=== PATIENT | male | born 1960 | race Caucasian/White ===

== ENCOUNTER → 2021-08-23 10:52 | Outpatient (BNVA) | payer OTHER, SELFPAY | PROVIDERS: PCP Internal Medicine; Visit Provider Nurse Practitioner Family | DX: G43.009 Migraine without aura, not intractable, without status migrainosus (principal); F07.81 Postconcussional syndrome | CPT/HCPCS: 99212 ==

== ENCOUNTER → 2021-11-01 13:22 | Outpatient (BNVA) | payer OTHER, SELFPAY | PROVIDERS: PCP Internal Medicine; Visit Provider Nurse Practitioner Family | DX: G43.009 Migraine without aura, not intractable, without status migrainosus (principal); F07.81 Postconcussional syndrome; R42 Dizziness and giddiness | CPT/HCPCS: 99212 ==

== ENCOUNTER → 2022-03-02 10:01 | Outpatient (BNVA) | payer OTHER, SELFPAY | PROVIDERS: PCP Internal Medicine; Visit Provider Nurse Practitioner Family | DX: F07.81 Postconcussional syndrome (principal); G43.009 Migraine without aura, not intractable, without status migrainosus | CPT/HCPCS: 99212 ==

== ENCOUNTER → 2022-05-25 08:37 | Outpatient (BNVA) | payer OTHER, SELFPAY | PROVIDERS: PCP Internal Medicine; Visit Provider Nurse Practitioner Family | DX: F07.81 Postconcussional syndrome (principal); G43.009 Migraine without aura, not intractable, without status migrainosus | CPT/HCPCS: 99212 ==

== ENCOUNTER → 2022-08-24 08:04 | Outpatient (BNVA) | payer OTHER, SELFPAY | PROVIDERS: PCP Internal Medicine; Visit Provider Nurse Practitioner Family | DX: F07.81 Postconcussional syndrome (principal) | CPT/HCPCS: 99212 ==

== ENCOUNTER → 2022-11-30 07:59 | Outpatient (BNVA) | payer OTHER, SELFPAY | PROVIDERS: PCP Internal Medicine; Visit Provider Nurse Practitioner Family | DX: F07.81 Postconcussional syndrome (principal); G43.009 Migraine without aura, not intractable, without status migrainosus; R42 Dizziness and giddiness; Z79.899 Other long term (current) drug therapy | CPT/HCPCS: 99212 ==

== ENCOUNTER 2023-03-04 12:46 | Outpatient (AMB) | payer OTHER, SELFPAY ==
--- NOTE | 2023-03-04 13:05 | A.OFFVIS_ITS ---
Intake Vital Signs 03/04/23 13:06 Height 5 ft 9 in Weight 212 lb BMI 31.3 BP 134/74 Blood Pressure Location Lt brachial Position Sitting Respiration 14 Pulse 55 Pulse Source Pulse Oximeter Pulse Oximetry (%) 97 Oxygen Delivery Method Room Air Intake Visit Reasons: Low Back Pain Allergies cat dander Allergy (Mild, Verified 03/04/23 13:07) Wheezing dog dander Allergy (Mild, Verified 03/04/23 13:07) Wheezing hayfever Allergy (Mild, Uncoded 03/04/23 13:07) Wheezing Medication List - Last Reconciled 03/04/23 by Kenyetta Riley LPN adhesive bandage XL. Apply to injection site. albuterol sulfate mg inhalation Q6H albuterol sulfate 90 mcg/actuation 2 puffs inhalation Q4-6H PRN aspirin 81 mg PO DAILY benzonatate 200 mg PO TID PRN budesonide-formoterol 160-4.5 mcg/actuation (Symbicort) 2 puffs inhalation clonazepam 0.5 mg PO BID cyclobenzaprine 10 mg PO TID PRN fluticasone propionate 50 mcg/actuation 1 spray intranasal DAILY galcanezumab-gnlm (Emgality Pen) 120 mg subcut monthly; 30 days ibuprofen 800 mg PO TID PRN isopropyl alcohol 70% 1 ea topically monthly before Emgality injection; 30 days isopropyl alcohol 70% 3 ea topical .monthly 30 days levothyroxine 125 mcg PO QAM lisinopril-hydrochlorothiazide 20-12.5 mg 1 tab PO DAILY montelukast 10 mg PO DAILY pantoprazole 40 mg PO DAILY propranolol ER 80 mg PO DAILY 30 days simvastatin 40 mg PO QPM sumatriptan succinate 1/2 - 1 tab po prn at onset of migraine, may repeat in 2 hours (max 2 tabs per day, 4 tabs per week) (may take with Aleve) 30 days tadalafil 5 mg PO DAILY HPI Low Back Pain HPI Details 62-year-old male who presents today to t he office for a new patient evaluation of low back pain. The patient reports low back pain secondary to DJD of the spine spine. He has long standing neck and back pain that has going on for eight years. The patient was referred to us for consideration of lumbar facet blocks. It is rated at 5- 8/10 in intensity. He had tried massages at home in the past. He takes ibuprofen, Tylenol, and Percocet. He is currently on Propranolol and is currently receiving Emgality Pen shots for migraine preventions with Dr. Jerez. He is also on cyclobenzaprine and Klonopin. The patient reports pain in his neck that radiates to his right shoulder. His pain is worse at night. He has not been in formal physical therapy recently but has been on and off participating in PT with physician directed home exercises. He has weakness and fatigue in his arm. He has intermittent numbness in his hands. He has muscle tightness and pain with sideways movements. He has noticed an occasional clicking sound when turning his head. His history is notable for rotator cuff tendonitis, and he has previously received injections with moderate benefit. He is currently working a half shift from 7:00 AM to 12:00 PM and then picking up his grandson from preschool in the evening. The patient had bilateral hydrocelectomy with Dr. Fierro in 03/14/22. [facility] Medical History (Updated 03/05/23 @ 11:28 by Raghav Erwin MD) Irritable bowel syndrome with diarrhea Obesity Neck pain Hypothyroidism Chronic back pain Bronchial asthma Hyperlipidemia HTN (hypertension) Surgical History History of hydrocelectomy Hx of hernia repair Family History Father Heart disease Mother Heart disease Social History Alcohol intake: current Alcohol intake frequency: holidays/special occasions only Patient Tobacco Use Status: Never used Tobacco Review of Systems Const All systems reviewed & are unremarkable except as noted in HPI and below Physical Exam Vital Signs: Last Vital Signs Pulse 55 03/04/23 13:06 Resp 14 03/04/23 13:06 BP 134/74 03/04/23 13:06 Pulse Ox 97 03/04/23 13:06 Oxygen Delivery Method Room Air 03/04/23 13:06 BMI result Body Mass Index 31.3 General: Appears afebrile. Alert and oriented. Mood and affect appropriate. Follows and participates in conversation appropriately. Respiratory effort is unlabored. Able to transition from sit to stand unassisted. Ambulates with bilaterally normal heel strike and toe off. Cervical extension reproduces pain on the both sides more on the right side than left side. Cervical flexion also reproduces pain at the back of the neck. Results Reviewed Results Reviewed: No imaging is available for review. Assessment & Plan Assessment & Plan (1) Cervical spondylosis: Code(s): M47.812 - Spondylosis without myelopathy or radiculopathy, cervical region (2) Lumbar spondylosis: Code(s): M47.816 - Spondylosis without myelopathy or radiculopathy, lumbar region Plan Likely has a combination of cervical DJD / DDD. At this time his neck pain radiating into the shoulder seems to be most bothersome on the right side. Will schedule him for right diagnostic C4-C5-C6 medial branch blocks followed by potential PNS or RFA. Discussed the risks and benefits of the procedure with the patient in detail. All questions were answered. The patient is on board with the plan. In case of radicular symptoms in the future, can consider epidural steroid injection in the neck and facet blocks for the lower back for low back pain. Justification for interventional therapy: ? Patient with average pain > 6/10 ? Patient has exhausted conservative therapy ? Patient has been engaged in physician directed home exercise program for several months Scribed for Dr. Erwin by Jerzy Santiago, medical i d sales, on 03/04/2023. I, Dr. Erwin, have personally reviewed and agree with the information entered by the scribe. Coding Level of Care Code New Pt Level 4 (64399) Diagnoses Cervical spondylosis M47.812 Lumbar spondylosis M47.816
[2023-03-04 13:06] VITALS: BP 134/74; PULSE 55; RESP 14; O2SAT 97; BMI 31.3
== END 2023-03-04 13:42 | disposition home or self-care (01) ==
PROVIDERS: PCP Internal Medicine; Visit Provider Internal Medicine
DX: M47.812 Spondylosis without myelopathy or radiculopathy, cervical region (principal); M47.816 Spondylosis without myelopathy or radiculopathy, lumbar region
CPT/HCPCS: 99204

== ENCOUNTER → 2023-03-04 12:46 | Outpatient (BNVA) | payer OTHER, SELFPAY | PROVIDERS: PCP Internal Medicine; Visit Provider Internal Medicine ==

== ENCOUNTER 2023-03-13 12:26 | Outpatient (AMB) | payer OTHER, SELFPAY ==
--- NOTE | 2023-03-13 13:11 | MHC.OFFVIS ---
Intake Vital Signs 03/13/23 13:13 BP 122/78 Blood Pressure Location Rt brachial Position Sitting Pulse 51 Pulse Source Pulse Oximeter Pulse Oximetry (%) 97 Oxygen Delivery Method Room Air Intake Visit Reasons: WC 3m follow up-Confirmed Intake Note: Patient presents for 3 month follow up. patient states It's been a rough summer,more frequent headaches. Allergies cat dander Allergy (Mild, Verified 03/13/23 13:12) Wheezing dog dander Allergy (Mild, Verified 03/13/23 13:12) Wheezing hayfever Allergy (Mild, Uncoded 03/13/23 13:12) Wheezing Medication List - Last Reconciled 03/13/23 by RAYMUNDO Ordonez adhesive bandage XL. Apply to injection site. albuterol sulfate mg inhalation Q6H albuterol sulfate 90 mcg/actuation 2 puffs inhalation Q4-6H PRN aspirin 81 mg PO DAILY benzonatate 200 mg PO TID PRN budesonide-formoterol 160-4.5 mcg/actuation (Symbicort) 2 puffs inhalation clonazepam 0.5 mg PO BID cyclobenzaprine 10 mg PO TID PRN fluticasone propionate 50 mcg/actuation 1 spray intranasal DAILY galcanezumab-gnlm (Emgality Pen) 120 mg subcut monthly; 30 days ibuprofen 800 mg PO TID PRN isopropyl alcohol 70% 1 ea topically monthly before Emgality injection; 30 days isopropyl alcohol 70% 3 ea topical .monthly 30 days levothyroxine 125 mcg PO QAM lisinopril-hydrochlorothiazide 20-12.5 mg 1 tab PO DAILY montelukast 10 mg PO DAILY pantoprazole 40 mg PO DAILY propranolol ER 80 mg PO DAILY 30 days simvastatin 40 mg PO QPM sumatriptan succinate 1/2 - 1 tab po prn at onset of migraine, may repeat in 2 hours (max 2 tabs per day, 4 tabs per week) (may take with Aleve) 30 days tadalafil 5 mg PO DAILY HPI HPI Comments History of Present Illness Details 62-yr-old male presents for f/u visit. Pt denies any significant interval medical changes. He reports an increase in headaches- now 3-4 headaches per week, 1 of which is a more mod-severe migraine attack. Pt did decrease his Propranolol was decreased from 120mg to 80mg- which has helped the bradycardia- now HR is > 50 more consistently. Pt states PCP is considering reducing his BP meds overall. There was more weather changes over the summer. He does try to rest, and do his relaxation techniques. He does try to minimize his triggers- such as takes breaks during his own yard work or while driving. He is compliant w/ Emgality. Using the Sumatriptan prn which usually helps, but can feel more tired from fighting a headache PFSH Medical History (Updated 03/05/23 @ 11:28 by Raghav Erwin MD) Irritable bowel syndrome with diarrhea Obesity Neck pain Hypothyroidism Chronic back pain Bronchial asthma Hyperlipidemia HTN (hypertension) Surgical History History of hydrocelectomy Hx of hernia repair Family History Father Heart disease Mother Heart disease Social History Alcohol intake: current Alcohol intake frequency: holidays/special occasions only Patient Tobacco Use Status: Never used Tobacco Review of Systems Const All systems reviewed & are unremarkable except as noted in HPI and below Physical Exam Vital Signs: Last Vital Signs Pulse 51 03/13/23 13:13 BP 122/78 03/13/23 13:13 Pulse Ox 97 03/13/23 13:13 Oxygen Delivery Method Room Air 03/13/23 13:13 Const General: cooperative and no acute distress Orientation/consciousness: patient oriented x3 HEENT Head: Yes normocephalic Resp Effort & Inspection: normal respiratory effort and able to speak in complete sentences Neuro General: patient oriented x3, gait normal and CN's II-XI intact bilaterally Cognition (Neuro): normal cognition Motor exam (neuro): 5/5 motor strength present throughout Psych Appearance: grossly normal Mental Status: mental status grossly normal Speech and movement: Normal speech and movement present Affect: normal affect Attitude: cooperative Thought process: Normal thought process present Thought content: Normal thought content present Insight: Good insight present (Psych) Judgement: Good judgement present (Psych) Assessment & Plan Assessment & Plan (1) Postconcussive syndrome: Comment: headache/migraines s/p head injury Jan 2016 and August 2016. Code(s): F07.81 - Postconcussional syndrome (2) Migraine without aura: Code(s): G43.009 - Migraine without aura, not intractable, without status migrainosus Plan Continue Emgality 120mg sc q month. Retry Propranolol ER at 120mg qhs to 80mg qhs- in hopes this reduces headache burden. Pt to check BP & HR at home qd-bid, and notify me if HR < 46. Continue prn Sumatriptan and NSAID. Continue to rest 15-20 minutes after taking triptan to allow for best effect. Continue to avoid triggers. Future considerations: If bradycardia worsens- reduce Propranolol back to 60mg ER qd, start B2 and Mag. Nerivio- info given. Coding Level of Care Code Est Pt Level 4 (72364) Diagnoses Postconcussive syndrome F07.81 Migraine without aura G43.009
[2023-03-13 13:13] VITALS: BP 122/78; PULSE 51; O2SAT 97
== END 2023-03-13 14:08 | disposition home or self-care (01) ==
PROVIDERS: PCP Internal Medicine; Visit Provider Nurse Practitioner Family
DX: R00.1 Bradycardia, unspecified (principal); F07.81 Postconcussional syndrome; G44.309 Post-traumatic headache, unspecified, not intractable
CPT/HCPCS: 99213

== ENCOUNTER → 2023-03-13 12:26 | Outpatient (BNVA) | payer OTHER, SELFPAY | PROVIDERS: PCP Internal Medicine; Visit Provider Nurse Practitioner Family | DX: F07.81 Postconcussional syndrome (principal); G43.009 Migraine without aura, not intractable, without status migrainosus; Z79.899 Other long term (current) drug therapy | CPT/HCPCS: 99212 ==

== ENCOUNTER 2023-05-15 06:06 | Outpatient (REF) | payer OTHER, SELFPAY ==
--- NOTE | ~2023-05-15 | FL_ITS ---
EXAMINATION: XR FLUOROSCOPY WITH IMAGES CLINICAL INFORMATION: Spondylosis without myelopathy or radiculopathy, cervical region. COMPARISON: None available. TECHNIQUE: Fluoroscopy Supervised By: Dr. Raghav Erwin. Fluoroscopy Time: 0.3 minutes. Cumulative Dose: 6.86 mGy. DAP: 0.731 Gycm2. Images: 1. FINDINGS: Image demonstrates needle placement and contrast injection adjacent to the right lateral cervical spine FL/FL guidance in treatment room IMPRESSION: Fluoroscopy guidance for pain management procedure.
== END 2023-05-15 06:07 | disposition home or self-care (01) ==
LOC: CF 06:06
PROVIDERS: Visit Provider Internal Medicine
DX: M47.812 Spondylosis without myelopathy or radiculopathy, cervical region (principal)
CPT/HCPCS: 64490; 64491; J2795; Q9967

== ENCOUNTER 2023-05-15 08:12 | Outpatient (AMB) | payer OTHER, SELFPAY ==
[2023-05-15 08:20] VITALS: BP 140/72; PULSE 49; RESP 12; O2SAT 97
--- NOTE | 2023-05-15 08:20 | MHC.OFFVIS ---
Intake Vital Signs 05/15/23 08:20 05/15/23 09:02 BP 140/72 H 120/68 Blood Pressure Location Lt brachial Lt brachial Position Sitting Sitting Respiration 12 12 Pulse 49 L 48 L Pulse Source Pulse Oximeter Pulse Oximeter Pulse Oximetry (%) 97 96 Oxygen Delivery Method Room Air Room Air Intake Visit Reasons: right Dx C4-C5-C6 MBB Allergies cat dander Allergy (Mild, Verified 05/15/23 08:21) Wheezing dog dander Allergy (Mild, Verified 05/15/23 08:21) Wheezing hayfever Allergy (Mild, Uncoded 05/15/23 08:21) Wheezing HPI right Dx C4-C5-C6 MBB HPI Details Patient presents for scheduled procedure. Denies any recent cough, cold, infection, fever or other significant changes in medical history since last office visit. [facility] Medical History (Updated 04/17/23 @ 14:52 by Angela Jones) Irritable bowel syndrome with diarrhea Obesity Neck pain Hypothyroidism Chronic back pain Bronchial asthma Hyperlipidemia HTN (hypertension) Surgical History (Updated 04/17/23 @ 14:52 by Angela Jones) History of hydrocelectomy Hx of hernia repair Family History (System 04/17/23 @ 14:52 by Angela Jones) Father Heart disease Mother Heart disease Social History (System 04/17/23 @ 14:52 by Angela Jones) Alcohol intake: current Alcohol intake frequency: holidays/special occasions only Patient Tobacco Use Status: Never used Tobacco Physical Exam Vital Signs: Last Vital Signs Pulse 48 L 05/15/23 09:02 Resp 12 05/15/23 09:02 BP 120/68 05/15/23 09:02 Pulse Ox 96 05/15/23 09:02 Oxygen Delivery Method Room Air 05/15/23 09:02 Office Procedures Cervical/Thoracic Facet Inj Details: Diagnostic Cervical Medial Branch Block, right C4, C5, C6 medial branches After obtaining written consent, pre-procedure blood pressure and pulse were recorded and are in the nursing record for review. The patient was placed in a lateral position. The respective cervical area was prepped with chloraprep and draped in sterile fashion. The skin over the target medial branch nerves was anesthetized with 0.5% lidocaine. A 25 gauge 1.5 inch needle was inserted into the target medial branch nerve under fluoroscopic guidance. No paresthesias were elicited with needle placement and aspiration was negative for blood and CSF. Next, 0.2cc of omnipaque 180 was injected to verify positioning. Next 0.5 ml 0.5% ropivicaine was injected (0.5 cc total per level). The identical procedure was performed at the remaining levels. The skin was cleansed and a sterile bandage was applied. Following the procedure the patient's vital signs were stable. The patient tolerated the procedure well and no complications were encountered. Following the procedure the patient's vital signs were stable. The patient was discharged home in good condition with post-procedural instructions. Time Out: Immediately prior to the procedure, the following was verbally confirmed that there is a signed consent form and that the correct patient, planned procedure, site and side are consistent with documentation and that necessary equipment and/or blood products are available prior to the start of the case. Complications: none EBL: <5 cc 74196 - second level, with Fluoroscopy Procedure code (CPT) selection complete Assessment & Plan Assessment & Plan (1) Cervical spondylosis: Code(s): M47.812 - Spondylosis without myelopathy or radiculopathy, cervical region Plan Patient is status post right diagnostic C4, C5, C6 MBBs. Patient tolerated procedure well and was discharged home in stable condition with discharge instructions. All questions were answered. We will follow-up via telephone or in clinic to assess response to therapy. A follow-up appointment was made during today's visit. Orders: Orders FL guidance in treatment room Today M47.812 - Spondylosis without myelopathy or radiculopathy, cervical region Coding Level of Care Code Procedure Only Diagnoses Cervical spondylosis M47.812 CPT Codes Facet Injection Cervical/Thoracic - CPT: 45894 - second level, with Fluoroscopy ([id number])
[2023-05-15 09:02] VITALS: BP 120/68; PULSE 48; RESP 12; O2SAT 96
== END 2023-05-15 08:56 | disposition home or self-care (01) ==
LOC: HO.PMCPRC 08:12
PROVIDERS: PCP Internal Medicine; Visit Provider Internal Medicine
DX: M47.812 Spondylosis without myelopathy or radiculopathy, cervical region (principal)
CPT/HCPCS: 64490; 64491

== ENCOUNTER 2023-05-20 12:38 | Outpatient (AMB) | payer OTHER, SELFPAY ==
--- NOTE | 2023-05-20 12:58 | MHC.OFFVIS ---
Intake Vital Signs 05/20/23 12:59 Height 5 ft 9 in Weight 220 lb BMI 32.5 Blood Pressure Location Lt brachial Position Sitting Respiration 12 Pulse 50 Pulse Source Pulse Oximeter Pulse Oximetry (%) 97 Oxygen Delivery Method Room Air Intake Visit Reasons: s/p Right Dx C4-C5-C6 MBB/confirmed Allergies cat dander Allergy (Mild, Verified 05/20/23 13:00) Wheezing dog dander Allergy (Mild, Verified 05/20/23 13:00) Wheezing hayfever Allergy (Mild, Uncoded 05/20/23 13:00) Wheezing Medication List - Last Reconciled 05/20/23 by Kenyetta Riley LPN adhesive bandage XL. Apply to injection site. albuterol sulfate mg inhalation Q6H albuterol sulfate 90 mcg/actuation 2 puffs inhalation Q4-6H PRN aspirin 81 mg PO DAILY benzonatate 200 mg PO TID PRN budesonide-formoterol 160-4.5 mcg/actuation (Symbicort) 2 puffs inhalation clonazepam 0.5 mg PO BID cyclobenzaprine 10 mg PO TID PRN fluticasone propionate 50 mcg/actuation 1 spray intranasal DAILY galcanezumab-gnlm (Emgality Pen) 120 mg subcut monthly; 30 days ibuprofen 800 mg PO TID PRN isopropyl alcohol 70% 1 ea topically monthly before Emgality injection; 30 days isopropyl alcohol 70% 3 ea topical .monthly 30 days levothyroxine 125 mcg PO QAM lisinopril-hydrochlorothiazide 20-12.5 mg 1 tab PO DAILY montelukast 10 mg PO DAILY pantoprazole 40 mg PO DAILY propranolol ER 80 mg PO DAILY 30 days simvastatin 40 mg PO QPM sumatriptan succinate 1/2 - 1 tab po prn at onset of migraine, may repeat in 2 hours (max 2 tabs per day, 4 tabs per week) (may take with Aleve) 30 days tadalafil 5 mg PO DAILY HPI s/p Right Dx C4-C5-C6 MBB/confirmed HPI Details 63-year-old male who presents today to the office for a status post right diagnostic C4-C5-C6 MBB. The patient reports 90% relief following the procedure for about four days. He has good improvement in his neck ROM. He is currently employed and work supervisor delivery department. He states that his eating and sleeping was improved. Past procedure: 05/15/23: Diagnostic Cervical Medial Branch Block, right C4, C5, C6 medial branches: 90% relief for about four days. [facility] Medical History (Updated 04/17/23 @ 14:52 by Angela Jones) Irritable bowel syndrome with diarrhea Obesity Neck pain Hypothyroidism Chronic back pain Bronchial asthma Hyperlipidemia HTN (hypertension) Surgical History (Updated 04/17/23 @ 14:52 by Angela Jones) History of hydrocelectomy Hx of hernia repair Family History (System 04/17/23 @ 14:52 by Angela Jones) Father Heart disease Mother Heart disease Social History (System 04/17/23 @ 14:52 by Angela Jones) Alcohol intake: current Alcohol intake frequency: holidays/special occasions only Patient Tobacco Use Status: Never used Tobacco Review of Systems Const All systems reviewed & are unremarkable except as noted in HPI and below Physical Exam Vital Signs: Last Vital Signs Pulse 50 05/20/23 12:59 Resp 12 05/20/23 12:59 Pulse Ox 97 05/20/23 12:59 Oxygen Delivery Method Room Air 05/20/23 12:59 BMI result Body Mass Index 32.5 General: Appears afebrile. Alert and oriented. Mood and affect appropriate. Follows and participates in conversation appropriately. Respiratory effort is unlabored. Able to transition from sit to stand unassisted. Ambulates with bilaterally normal heel strike and toe off. Results Reviewed Results Reviewed: No imaging is available for review. Assessment & Plan Assessment & Plan (1) Cervical spondylosis: Code(s): M47.812 - Spondylosis without myelopathy or radiculopathy, cervical region Plan Will schedule him for right C4-5 and C5-6 therapeutic facet blocks with corticosteroid followed by potential PNS or RFA if needed. Discussed the risks and benefits of facet injection, peripheral nerve stimulation of the medial branch and radiofrequency ablation of the medial branch with the patient in detail. All questions were answered. The patient is on board with the plan. Justification for interventional therapy: ? Patient with average pain > 6/10 ? Patient has exhausted conservative therapy ? Patient has been engaged in physician directed home exercise program for several months . Diagnostic injection provided 90% relief during the diagnostic phase Scribed for Dr. Erwin by Jerzy Santiago, medical office manager, on 05/20/2023. I, Dr. Erwin, have personally reviewed and agree with the information entered by the scribe. Coding Level of Care Code Est Pt Level 3 (40578) Diagnoses Cervical spondylosis M47.812
[2023-05-20 12:59] VITALS: PULSE 50; RESP 12; O2SAT 97; BMI 32.5
== END 2023-05-20 13:34 | disposition home or self-care (01) ==
PROVIDERS: PCP Internal Medicine; Visit Provider Internal Medicine
DX: M47.812 Spondylosis without myelopathy or radiculopathy, cervical region (principal)
CPT/HCPCS: 99213

== ENCOUNTER → 2023-05-20 12:38 | Outpatient (BNVA) | payer OTHER, SELFPAY | PROVIDERS: PCP Internal Medicine; Visit Provider Internal Medicine ==

== ENCOUNTER 2023-06-27 06:10 | Outpatient (REF) | payer OTHER, SELFPAY ==
--- NOTE | ~2023-06-27 | FL_ITS ---
EXAMINATION: XR FLUOROSCOPY WITH IMAGES CLINICAL INFORMATION: Cervical spondylosis without myelopathy. COMPARISON: Fluoroscopy dated 05/15/2023. TECHNIQUE: Fluoroscopy Supervised By: Monisha Canela. Fluoroscopy Time: 16.1. Cumulative Dose: 6.96 mGy. Images: 3. FINDINGS: The submitted images show show needle placement and contrast injection adjacent to the upper right lateral cervical spine. FL/FL guidance in treatment room IMPRESSION: Probable fluoroscopic guidance is provided during right cervical pain management procedure. Please see the patient's Operative Report for full procedural details.
== END 2023-06-27 06:11 | disposition home or self-care (01) ==
LOC: CF 06:10
PROVIDERS: Visit Provider Internal Medicine
DX: M47.812 Spondylosis without myelopathy or radiculopathy, cervical region (principal)
CPT/HCPCS: 64490; 64491; J1100; J2795; Q9967

== ENCOUNTER 2023-06-27 13:07 | Outpatient (AMB) | payer OTHER, SELFPAY ==
[2023-06-27 13:10] VITALS: BP 130/68; PULSE 62; RESP 12; O2SAT 97
--- NOTE | 2023-06-27 13:10 | A.OFFVIS_ITS ---
Intake Vital Signs 06/27/23 13:10 06/27/23 14:04 BP 130/68 120/68 Blood Pressure Location Lt brachial Rt brachial Position Sitting Sitting Respiration 12 12 Pulse 62 57 Pulse Source Pulse Oximeter Pulse Oximeter Pulse Oximetry (%) 97 96 Oxygen Delivery Method Room Air Room Air Intake Visit Reasons: Right C4-C5, C5-C6 theraputic facet inj Allergies cat dander Allergy (Mild, Verified 06/27/23 13:10) Wheezing dog dander Allergy (Mild, Verified 06/27/23 13:10) Wheezing hayfever Allergy (Mild, Uncoded 06/27/23 13:10) Wheezing HPI Right C4-C5, C5-C6 theraputic facet inj HPI Details Patient presents for scheduled procedure. Denies any recent cough, cold , infection, fever or other significant changes in medical history since last office visit. [facility] Medical History (Updated 04/17/23 @ 14:52 by Angela Jones) Irritable bowel syndrome with diarrhea Obesity Neck pain Hypothyroidism Chronic back pain Bronchial asthma Hyperlipidemia HTN (hypertension) Surgical History (Updated 04/17/23 @ 14:52 by Angela Jones) History of hydrocelectomy Hx of hernia repair Family History (System 04/17/23 @ 14:52 by Angela Jones) Father Heart disease Mother Heart disease Social History (System 04/17/23 @ 14:52 by Angela Jones) Alcohol intake: current Alcohol intake frequency: holidays/special occasions only Patient Tobacco Use Status: Never used Tobacco Physical Exam Vital Signs: Last Vital Signs Pulse 57 06/27/23 14:04 Resp 12 06/27/23 14:04 BP 120/68 06/27/23 14:04 Pulse Ox 96 06/27/23 14:04 Oxygen Delivery Method Room Air 06/27/23 14:04 Office Procedures Cervical/Thoracic Facet Inj Details: Cervical Intra-articular Facet Injections, Right, C-4/5, C-5/6 After obtaining written consent, pre-procedure blood pressure and pulse were recorded and are in the nursing record for review. The patient was placed in a lateral position. The respective cervical area was prepped with chloraprep and draped in sterile fashion. The target facet joints were visualized. A 25 gauge 1.5 inch needle was advanced towards the target facet joint under fluoroscopic guidance until bony contact. The needle was then maneuvered and rotated until it slid into the joint slightly. No paresthesias were elicited with needle placement and aspiration was negative for blood and CSF. Facet arthrograms were obtained using Omnipaque 180. Next, 5 mg of Dexamethasone was injected (0.5 cc total per level). The needle was then withdrawn to just outside the capsule and 0.5 ml ropivacaine 0.5% was injected. The identical procedure was performed at the remaining levels. The skin was cleansed and a sterile bandage was applied. Following the procedure the patient's vital signs were stable. The patient tolerated the procedure well and no complications were encountered. Following the procedure the patient's vital signs were stable. The patient was discharged home in good condition with post-procedural instructions. Time Out: Immediately prior to the procedure, the following was verbally confirmed that there is a signed consent form and that the correct patient, planned procedure, site and side are consistent with documentation and that necessary equipment and/or blood products are available prior to the start of the case. Complications: none EBL: <5 cc 16688 - with Fluoroscopy 91857 - second level, with Fluoroscopy Procedure code (CPT) selection complete Assessment & Plan Assessment & Plan (1) Cervical spondylosis: Code(s): M47.812 - Spondylosis without myelopathy or radiculopathy, cervical region Plan Patient is status post right C4/5 and C5/6 intra-articular facet decadron injections. Patient tolerated procedure well and was discharged home in stable condition with discharge instructions. All questions were answered. We will follow-up via telephone or in clinic to assess response to therapy. A follow-up appointment was made during today's visit. Orders: Orders FL guidance in treatment room Today M47.812 - Spondylosis without myelopathy or radiculopathy, cervical region Coding Level of Care Code Procedure Only Diagnoses Cervical spondylosis M47.812 CPT Codes Facet Injection Cervical/Thoracic - CPT: 78611 - with Fluoroscopy ([id number]) Facet Injection Cervical/Thoracic - CPT: 25191 - second level, with Fluoroscopy ([id number])
[2023-06-27 14:04] VITALS: BP 120/68; PULSE 57; RESP 12; O2SAT 96
== END 2023-06-27 14:01 | disposition home or self-care (01) ==
LOC: HO.PMCPRC 13:07
PROVIDERS: PCP Internal Medicine; Visit Provider Internal Medicine
DX: M47.812 Spondylosis without myelopathy or radiculopathy, cervical region (principal)
CPT/HCPCS: 64490; 64491

== ENCOUNTER 2023-07-15 13:01 | Outpatient (AMB) | payer OTHER, SELFPAY ==
--- NOTE | 2023-07-15 13:19 | MHC.OFFVIS ---
Intake Vital Signs 07/15/23 13:21 Height 5 ft 9 in BP 122/78 Blood Pressure Location Rt brachial Position Sitting Pulse 63 Pulse Source Pulse Oximeter Pulse Oximetry (%) 96 Oxygen Delivery Method Room Air Intake Visit Reasons: WC 3 mnts f/u appt-Comfirmed Intake Note: Patient presents for 3 month follow up. Had a rough weekend, no improvement Allergies cat dander Allergy (Mild, Verified 07/15/23 13:20) Wheezing dog dander Allergy (Mild, Verified 07/15/23 13:20) Wheezing hayfever Allergy (Mild, Uncoded 07/15/23 13:20) Wheezing Medication List - Last Reconciled 07/15/23 by RAYMUNDO Odronez adhesive bandage XL. Apply to injection site. albuterol sulfate mg inhalation Q6H albuterol sulfate 90 mcg/actuation 2 puffs inhalation Q4-6H PRN aspirin 81 mg PO DAILY benzonatate 200 mg PO TID PRN budesonide-formoterol 160-4.5 mcg/actuation (Symbicort) 2 puffs inhalation clonazepam 0.5 mg PO BID cyclobenzaprine 10 mg PO TID PRN fluticasone propionate 50 mcg/actuation 1 spray intranasal DAILY galcanezumab-gnlm (Emgality Pen) 120 mg subcut monthly; 30 days ibuprofen 800 mg PO TID PRN isopropyl alcohol 70% 1 ea topically monthly before Emgality injection; 30 days isopropyl alcohol 70% 3 ea topical .monthly 30 days levothyroxine 125 mcg PO QAM lisinopril-hydrochlorothiazide 20-12.5 mg 1 tab PO DAILY montelukast 10 mg PO DAILY pantoprazole 40 mg PO DAILY propranolol ER 80 mg PO DAILY 30 days simvastatin 40 mg PO QPM sumatriptan succinate 1/2 - 1 tab po prn at onset of migraine, may repeat in 2 hours (max 2 tabs per day, 4 tabs per week) (may take with Aleve) 30 days tadalafil 5 mg PO DAILY HPI HPI Comments History of Present Illness Details 63-yr-old male presents for f/u visit. Pt denies any significant interval medical changes. Pt reports his migraine and postconcussive s/s have been stable. This past weekend, he was felling ok, and so tried to play a racing video game w/ his grandson, and developed a migraine within 15 minutes. He did rest and take a Sumatriptan- which took the edge off, but then had residual s/s for the rest of the weekend. Usually having 2-3 migraine days per week. states HR has been > 60bpm. Compliant w/ his Emgality and Propranolol. States he is tolerating Propranolol Er 80mg well- Sumatriptan is still helpful. Continues to use trigger avoidance, [facility] Medical History (Updated 04/17/23 @ 14:52 by Angela Jones) Irritable bowel syndrome with diarrhea Obesity Neck pain Hypothyroidism Chronic back pain Bronchial asthma Hyperlipidemia HTN (hypertension) Surgical History History of hydrocelectomy Hx of hernia repair Family History Father Heart disease Mother Heart disease Social History Alcohol intake: current Alcohol intake frequency: holidays/special occasions only Patient Tobacco Use Status: Never used Tobacco Physical Exam Vital Signs: Last Vital Signs Pulse 63 07/15/23 13:21 BP 122/78 07/15/23 13:21 Pulse Ox 96 07/15/23 13:21 Oxygen Delivery Method Room Air 07/15/23 13:21 Const General: cooperative and no acute distress Orientation/consciousness: patient oriented x3 Resp Effort & Inspection: normal respiratory effort and able to speak in complete sentences Neuro General: patient oriented x3 Cranial nerves: Yes CN's II-XII intact bilaterally Cognition (Neuro): normal cognition Psych Appearance: grossly normal Mental Status: mental status grossly normal Speech and movement: Normal speech and movement present Affect: normal affect Attitude: cooperative Assessment & Plan Assessment & Plan (1) Postconcussive syndrome: Comment: headache/migraines s/p head injury Jan 2016 and August 2016. Code(s): F07.81 - Postconcussional syndrome (2) Migraine without aura: Code(s): G43.009 - Migraine without aura, not intractable, without status migrainosus (3) Dizziness: Code(s): R42 - Dizziness and giddiness Plan Continue Emgality 120mg sc q month. Continue Propranolol ER 80mg qhs- continue to check BP & HR at home qd-bid, and notify me if HR < 55. Continue prn Sumatriptan and NSAID. Continue to rest 15-20 minutes after taking triptan to allow for best effect. Continue to avoid triggers. Future considerations: Nerivio. f/u in 4 months or sooner prn Coding Level of Care Code Est Pt Level 4 (38227) Diagnoses Postconcussive syndrome F07.81 Migraine without aura G43.009 Dizziness R42
[2023-07-15 13:21] VITALS: BP 122/78; PULSE 63; O2SAT 96
== END 2023-07-15 14:03 | disposition home or self-care (01) ==
PROVIDERS: PCP Internal Medicine; Visit Provider Nurse Practitioner Family
DX: G44.309 Post-traumatic headache, unspecified, not intractable (principal); F07.81 Postconcussional syndrome; R42 Dizziness and giddiness
CPT/HCPCS: 99214

== ENCOUNTER → 2023-07-15 13:01 | Outpatient (BNVA) | payer OTHER, SELFPAY | PROVIDERS: PCP Internal Medicine; Visit Provider Nurse Practitioner Family | DX: F07.81 Postconcussional syndrome (principal); G43.009 Migraine without aura, not intractable, without status migrainosus; R42 Dizziness and giddiness; Z79.899 Other long term (current) drug therapy | CPT/HCPCS: 99212 ==

== ENCOUNTER 2023-07-22 11:20 | Outpatient (AMB) | payer OTHER, SELFPAY ==
--- NOTE | 2023-07-22 11:22 | MHC.OFFVIS ---
Intake Vital Signs 07/22/23 11:23 Height 5 ft 9 in Weight 227 lb BMI 33.5 BP 142/67 H Blood Pressure Location Lt brachial Position Sitting Respiration 12 Pulse 64 Pulse Source Pulse Oximeter Pulse Oximetry (%) 97 Oxygen Delivery Method Room Air Intake Visit Reasons: s/p right C4-C5, C5-C6 facet inj Allergies cat dander Allergy (Mild, Verified 07/22/23 11:25) Wheezing dog dander Allergy (Mild, Verified 07/22/23 11:25) Wheezing hayfever Allergy (Mild, Uncoded 07/22/23 11:25) Wheezing Medication List - Last Reconciled 07/22/23 by Kenyetta Riley LPN adhesive bandage XL. Apply to injection site. albuterol sulfate mg inhalation Q6H albuterol sulfate 90 mcg/actuation 2 puffs inhalation Q4-6H PRN aspirin 81 mg PO DAILY benzonatate 200 mg PO TID PRN budesonide-formoterol 160-4.5 mcg/actuation (Symbicort) 2 puffs inhalation clonazepam 0.5 mg PO BID cyclobenzaprine 10 mg PO TID PRN fluticasone propionate 50 mcg/actuation 1 spray intranasal DAILY galcanezumab-gnlm (Emgality Pen) 120 mg subcut monthly; 30 days ibuprofen 800 mg PO TID PRN isopropyl alcohol 70% 1 ea topically monthly before Emgality injection; 30 days isopropyl alcohol 70% 3 ea topical .monthly 30 days levothyroxine 125 mcg PO QAM lisinopril-hydrochlorothiazide 20-12.5 mg 1 tab PO DAILY montelukast 10 mg PO DAILY pantoprazole 40 mg PO DAILY propranolol ER 80 mg PO DAILY 30 days simvastatin 40 mg PO QPM sumatriptan succinate 1/2 - 1 tab po prn at onset of migraine, may repeat in 2 hours (max 2 tabs per day, 4 tabs per week) (may take with Aleve) 30 days tadalafil 5 mg PO DAILY HPI s/p right C4-C5, C5-C6 facet inj HPI Details 63-year-old male who presents today to the office for a status post right C4-C5-C6 facet injection. The patient reports 80-90% relief following the procedure. He has significant pain relief. He is able to move without any pain. He is able to lay down on his abdomen and has good ROM of the arm. He is able to look sideways at traffic without any pain. He has been doing stretching exercises in the shower. He also reports bilateral shoulder pain. He is interested in receiving shoulder cortisone injections. He had received rotator cuff injections about 15 years ago with good effect. Past procedures: 06/27/23: Cervical Intra-articular Facet Injections, Right, C-4/5, C-5/6: 80-90% relief. 05/15/23: Diagnostic Cervical Medial Branch Block, right C4, C5, C6 medial branches: 90% relief for about four days. [facility] Medical History (Updated 07/22/23 @ 11:48 by Raghav Erwin MD) Irritable bowel syndrome with diarrhea Obesity Neck pain Hypothyroidism Chronic back pain Bronchial asthma Hyperlipidemia HTN (hypertension) Surgical History History of hydrocelectomy Hx of hernia repair Family History Father Heart disease Mother Heart disease Social History Alcohol intake: current Alcohol intake frequency: holidays/special occasions only Patient Tobacco Use Status: Never used Tobacco Review of Systems Const All systems reviewed & are unremarkable except as noted in HPI and below Physical Exam Vital Signs: Last Vital Signs Pulse 64 07/22/23 11:23 Resp 12 07/22/23 11:23 BP 142/67 H 07/22/23 11:23 Pulse Ox 97 07/22/23 11:23 Oxygen Delivery Method Room Air 07/22/23 11:23 BMI result Body Mass Index 33.5 General: Appears afebrile. Alert and oriented. Mood and affect appropriate. Follows and participates in conversation appropriately. Respiratory effort is unlabored. Able to transition from sit to stand unassisted. Ambulates with bilaterally normal heel strike and toe off. Results Reviewed Results Reviewed: No imaging is available for review. Assessment & Plan Assessment & Plan (1) Bilateral shoulder pain: Code(s): M25.511 - Pain in right shoulder; M25.512 - Pain in left shoulder (2) Cervical spondylosis: Code(s): M47.812 - Spondylosis without myelopathy or radiculopathy, cervical region Plan We will consider repeating cortisone injections once his pain returns. In the meantime, I encouraged the patient to perform cervical strengthening exercises at home. I also recommended trying traction exercises. Ordered a bilateral x-ray of the shoulder. The patient will follow up in one month for a review of the results and to receive scheduled bilateral shoulder injections. Discussed the risks and benefits of the procedure with the patient in detail. All questions were answered. The patient is on board with the plan. Scribed for Dr. Erwin by Jerzy Santiago, medical assistant internal medicine, on 07/22/2023. I, Dr. Erwin, have personally reviewed and agree with the information entered by the scribe. Orders: Orders XR shoulder RT min 2V 07/22/23 M25.511 - Pain in right shoulder, M25.512 - Pain in left shoulder XR shoulder LT min 2V 07/22/23 M25.511 - Pain in right shoulder, M25.512 - Pain in left shoulder Coding Level of Care Code Est Pt Level 4 (34718) Diagnoses Bilateral shoulder pain M25.511; M25.512 Cervical spondylosis M47.812
[2023-07-22 11:23] VITALS: BP 142/67; PULSE 64; RESP 12; O2SAT 97; BMI 33.5
== END 2023-07-22 11:55 | disposition home or self-care (01) ==
PROVIDERS: PCP Internal Medicine; Visit Provider Internal Medicine
DX: M25.511 Pain in right shoulder (principal); M25.512 Pain in left shoulder; M47.812 Spondylosis without myelopathy or radiculopathy, cervical region
CPT/HCPCS: 99214

== ENCOUNTER → 2023-07-22 11:20 | Outpatient (BNVA) | payer OTHER, SELFPAY | PROVIDERS: PCP Internal Medicine; Visit Provider Internal Medicine ==

== ENCOUNTER 2023-08-12 12:45 | Outpatient (REF) | payer OTHER, SELFPAY ==
--- NOTE | ~2023-08-12 | XR_ITS ---
EXAMINATION: XR SHOULDER, RIGHT CLINICAL INFORMATION: Pain in right shoulder COMPARISON: None available. TECHNIQUE: AP external rotation, Grashey, scapular Y, and axillary views of the right shoulder. FINDINGS: There is mild narrowing of glenohumeral joint on the right and mild cephalad migration suggestive for rotator cuff tear. There is rounded soft tissue calcification identified in the soft tissues adjacent to the greater tuberosity suggestive for calcified tendinopathy. No fracture or subluxation seen. XR/XR shoulder RT min 2V IMPRESSION: Degenerative changes with possible rotator cuff tear and calcified tendinopathy.
--- NOTE | ~2023-08-12 | XR_ITS ---
EXAMINATION: XR SHOULDER, LEFT CLINICAL INFORMATION: Pain in right shoulder COMPARISON: None available. TECHNIQUE: AP external rotation, Grashey, scapular Y, and axillary views of the left shoulder. FINDINGS: The bones and soft tissues are normal. No fracture. Glenohumeral and acromioclavicular alignment is anatomic with normal joint space. No abnormal soft tissue calcifications. XR/XR shoulder LT min 2V IMPRESSION: Normal left shoulder.
== END 2023-08-12 12:46 | disposition home or self-care (01) ==
LOC: HO.XRAY 12:45
PROVIDERS: PCP Internal Medicine; Visit Provider Internal Medicine
DX: M25.511 Pain in right shoulder (principal); M25.512 Pain in left shoulder
CPT/HCPCS: 73030

== ENCOUNTER 2023-08-19 10:36 | Outpatient (AMB) | payer OTHER, SELFPAY ==
[2023-08-19 10:51] VITALS: BP 115/73; PULSE 50; RESP 12; TEMP 36.6; O2SAT 98; BMI 33.5
--- NOTE | 2023-08-19 10:51 | A.OFFVIS_ITS ---
Intake Vital Signs 08/19/23 10:51 Height 5 ft 9 in Weight 227 lb BMI 33.5 BP 115/73 Blood Pressure Location Lt brachial Position Sitting Respiration 12 Pulse 50 Pulse Source Pulse Oximeter Temp 98 F Pulse Oximetry (%) 98 Oxygen Delivery Method Room Air Intake Visit Reasons: Bilateral Shoulder Injections Allergies cat dander Allergy (Mild, Verified 08/19/23 10:54) Wheezing dog dander Allergy (Mild, Verified 08/19/23 10:54) Wheezing hayfever Allergy (Mild, Uncoded 08/19/23 10:54) Wheezing Medication List - Last Reconciled 08/19/23 by Kenyetta Riley LPN adhesive bandage XL. Apply to injection site. albuterol sulfate mg inhalation Q6H albuterol sulfate 90 mcg/actuation 2 puffs inhalation Q4-6H PRN aspirin 81 mg PO DAILY benzonatate 200 mg PO TID PRN budesonide-formoterol 160-4.5 mcg/actuation (Symbicort) 2 puffs inhalation clonazepam 0.5 mg PO BID cyclobenzaprine 10 mg PO TID PRN fluticasone propionate 50 mcg/actuation 1 spray intranasal DAILY galcanezumab-gnlm (Emgality Pen) 120 mg subcut monthly; 30 days ibuprofen 800 mg PO TID PRN isopropyl alcohol 70% 1 ea topically monthly before Emgality injection; 30 days isopropyl alcohol 70% 3 ea topical .monthly 30 days levothyroxine 125 mcg PO QAM lisinopril-hydrochlorothiazide 20-12.5 mg 1 tab PO DAILY montelukast 10 mg PO DAILY pantoprazole 40 mg PO DAILY propranolol ER 80 mg PO DAILY 30 days simvastatin 40 mg PO QPM sumatriptan succinate 1/2 - 1 tab po prn at onset of migraine, may repeat in 2 hours (max 2 tabs per day, 4 tabs per week) (may take with Aleve) 30 days tadalafil 5 mg PO DAILY HPI Bilateral Shoulder Injections HPI Details 63-year-old male who presents today to t he office for a bilateral shoulder injection. He recently had an x-ray of his bilateral shoulder. He states that his right side is worse compared to his left side. He suspects that his pain is from the rotator cuff and bone spur in his shoulder. He has worked as a heavy equipment handler for 15 years. Denies any recent cough, cold, infection, fever or other significant changes in medical history since last office visit. Past procedures: 06/27/23: Cervical Intra-articular Facet Injections, Right, C-4/5, C-5/6: 80-90% relief. 05/15/23: Diagnostic Cervical Medial Bra nch Block, right C4, C5, C6 medial branches: 90% relief for about four days. [facility] Medical History (Updated 08/19/23 @ 11:32 by Raghav Erwin MD) Irritable bowel syndrome with diarrhea Obesity Neck pain Hypothyroidism Chronic back pain Bronchial asthma Hyperlipidemia HTN (hypertension) Surgical History History of hydrocelectomy Hx of hernia repair Family History Father Heart disease Mother Heart disease Social History Alcohol intake: current Alcohol intake frequency: holidays/special occasions only Patient Tobacco Use Status: Never used Tobacco Review of Systems Const All systems reviewed & are unremarkable except as noted in HPI and below Physical Exam Vital Signs: Last Vital Signs Temp 98 F 08/19/23 10:51 Pulse 50 08/19/23 10:51 Resp 12 08/19/23 10:51 BP 115/73 08/19/23 10:51 Pulse Ox 98 08/19/23 10:51 Oxygen Delivery Method Room Air 08/19/23 10:51 BMI result Body Mass Index 33.5 General: Appears afebrile. Alert and oriented. Mood and affect appropriate. Follows and participates in conversation appropriately. Respiratory effort is unlabored. Able to transition from sit to stand unassisted. Ambulates with bilaterally normal heel strike and toe off. Office Procedures Joint Injection/Drain Joint Injection/Drain Details: Right rotator cuff injection under ultrasound guidance Primary Site: right shoulder Prep: site was prepped using aseptic technique and site was prepped using sterile technique Injected: 40 mg of, Kenalog, with 0.25 mL of (ropivacaine), with 3 mL of and in the subcromial space Approach Used: posterolateral Procedure: The patient tolerated the procedure well Coding Details: An ultrasound image of the injection was taken and stored in the permanent record. - Acromioclavicular with ultrasound guidance (right, US guided) Procedure code (CPT) selection complete Results Reviewed Results Reviewed: 08/12/23: XR SHOULDER, LEFT FINDINGS: The bones and soft tissues are normal. No fracture. Glenohumeral and acromioclavicular alignment is anatomic with normal joint space. No abnormal soft tissue calcifications. IMPRESSION: Normal left shoulder. 08/12/23: XR SHOULDER, RIGHT FINDINGS: There is mild narrowing of glenohumeral joint on the right and mild cephalad migration suggestive for rotator cuff tear. There is rounded soft tissue calcification identified in the soft tissues adjacent to the greater tuberosity suggestive for calcified tendinopathy. No fracture or subluxation seen. IMPRESSION: Degenerative changes with possible rotator cuff tear and calcified tendinopathy. Assessment & Plan Assessment & Plan (1) Bilateral shoulder pain: Code(s): M25.511 - Pain in right shoulder; M25.512 - Pain in left shoulder (2) Right rotator cuff tear: Code(s): M75.101 - Unspecified rotator cuff tear or rupture of right shoulder, not specified as traumatic Plan Patient is status post right rotator cuff injection under ultrasound guidance. Patient tolerated procedure well and was discharged home in stable condition with discharge instructions. All questions were answered. We will follow-up in two weeks via telephone or in clinic to assess response to therapy. A follow-up appointment was made during today's visit. Ordered an MRI scan of the shoulder for further evaluation. Once I have reviewed the MRI result, I will consider providing a referral to orthopedic surgeon. Scribed for Dr. Erwin by Jerzy Santiago, medical laboratory technical officer, on 08/19/2023. I, Dr. Erwin, have personally reviewed and agree with the information entered by the scribe. Orders: Orders MR shoulder RT wo con 08/19/23 M75.101 - Unspecified rotator cuff tear or rupture of right shoulder, not specified as traumatic Coding Level of Care Code Est Pt Level 3 (13190) Diagnoses Bilateral shoulder pain M25.511; M25.512 Right rotator cuff tear M75.101 CPT Codes Coding - Joint 6: 19265 - Acromioclavicular with ultrasound guidance ([id number])
== END 2023-08-19 11:36 | disposition home or self-care (01) ==
PROVIDERS: PCP Internal Medicine; Visit Provider Internal Medicine
DX: M25.511 Pain in right shoulder (principal)
CPT/HCPCS: 20606

== ENCOUNTER → 2023-08-19 10:36 | Outpatient (BNVA) | payer OTHER, SELFPAY | PROVIDERS: PCP Internal Medicine; Visit Provider Internal Medicine | DX: M25.511 Pain in right shoulder (principal); M75.101 Unspecified rotator cuff tear or rupture of right shoulder, not specified as traumatic; M25.512 Pain in left shoulder | CPT/HCPCS: 20606; J2795; J3301 ==

== ENCOUNTER 2023-09-11 17:50 | Outpatient (REF) | payer OTHER, SELFPAY ==
--- NOTE | ~2023-09-11 | MR_ITS ---
EXAMINATION: MR SHOULDER WITHOUT CONTRAST, RIGHT CLINICAL INFORMATION: Right shoulder pain, limited range of motion, weakness COMPARISON: None available. TECHNIQUE: MRI of the shoulder without contrast was performed on a high-field scanner. FINDINGS: ROTATOR CUFF: The right supraspinatus tendon is intact, with diffuse thickening and marked T1 and T2 signal hypointensity, suggestive of calcification. The infraspinatus tendon is intact. LABRUM: The glenoid labrum is unremarkable. A subtle labral recess is seen at 11-12:00. TENDONS: The biceps anchor and extraarticular portion of the biceps tendon are intact. The subscapularis muscle and tendon attachment are normal. ACROMIOCLAVICULAR JOINT: The acromioclavicular joint is unremarkable. BONES: The acromion process shows normal flat anterior end without impingement. Irregular T2 hyperintense lesion is seen in anterior right humeral neck just deep to the bicipital groove, measuring 0.6 cm in AP diameter, 0.8 cm in width, 1.2 cm in vertical height. CARTILAGE: Articular cartilage of the humeral head and glenoid fossa are intact. MR/MR shoulder RT wo con IMPRESSION: 1. Calcific tendinitis of the right supraspinatus tendon. 2. Irregular T2 hyperintense lesion in the anterior right humeral neck just deep to the bicipital groove, suggestive of bone infarct not well visualized on plain x-ray. 3. No evidence of labral tear.
== END 2023-09-11 17:51 | disposition home or self-care (01) ==
LOC: HO.MRI 17:50
PROVIDERS: PCP Internal Medicine; Visit Provider Internal Medicine
DX: M75.101 Unspecified rotator cuff tear or rupture of right shoulder, not specified as traumatic (principal)
CPT/HCPCS: 73221

== ENCOUNTER 2023-11-14 12:59 | Outpatient (AMB) | payer OTHER, SELFPAY ==
--- NOTE | 2023-11-14 13:03 | MHC.OFFVIS ---
Vital Signs 11/14/23 13:04 Height 5 ft 9 in Weight 225 lb BMI 33.2 BP 124/82 Blood Pressure Location Rt brachial Position Sitting Pulse 57 Pulse Source Pulse Oximeter Pulse Oximetry (%) 97 Oxygen Delivery Method Room Air Intake Visit Reasons: WC 4m f/u appt-CONF Intake Note: Patient presents form 4 month follow up.patient has no concerns today Allergies cat dander Allergy (Mild, Verified 11/14/23 13:09) Wheezing dog dander Allergy (Mild, Verified 11/14/23 13:09) Wheezing hayfever Allergy (Mild, Uncoded 11/14/23 13:09) Wheezing Medication List - Last Reconciled 11/14/23 by RAYMUNDO Ordonez adhesive bandage XL. Apply to injection site. albuterol sulfate mg inhalation Q6H albuterol sulfate 90 mcg/actuation 2 puffs inhalation Q4-6H PRN aspirin 81 mg PO DAILY benzonatate 200 mg PO TID PRN budesonide-formoterol 160-4.5 mcg/actuation (Symbicort) 2 puffs inhalation clonazepam 0.5 mg PO BID cyclobenzaprine 10 mg PO TID PRN fluticasone propionate 50 mcg/actuation 1 spray intranasal DAILY galcanezumab-gnlm (Emgality Pen) 120 mg subcut monthly; 30 days ibuprofen 800 mg PO TID PRN isopropyl alcohol 70% 1 ea topically monthly before Emgality injection; 30 days isopropyl alcohol 70% 3 ea topical .monthly 30 days levothyroxine 125 mcg PO QAM lisinopril-hydrochlorothiazide 20-12.5 mg 1 tab PO DAILY montelukast 10 mg PO DAILY pantoprazole 40 mg PO DAILY propranolol ER 80 mg PO DAILY 30 days simvastatin 40 mg PO QPM sumatriptan succinate 1/2 - 1 tab po prn at onset of migraine, may repeat in 2 hours (max 2 tabs per day, 4 tabs per week) (may take with Aleve) 30 days tadalafil 5 mg PO DAILY HPI Comments Details: 63-yr-old male presents for f/u visit. Pt denies any significant interval medical changes. Pt reports he was just recently approved for accidental disability through his pension. Thus, he has been able to stop working- his last day of work was 2 days ago. Pt has plans to take daily walks. Continue to work on eating and drinking healthy. He continues to be mindful to minimize his migraine triggers- avoiding being outside in weather that is too hot for too long. He has recently noticed an increase in headaches- which he attributes to the warmer weather. Can feel tired- feels likely d/t the Propranolol- but lower doses did not control the headaches as well. His heart rate has been typically in the 50s. Compliant w/ Emgality. Sumatriptan is still helpful. [facility] Medical History (Updated 08/19/23 @ 11:32 by Raghav Erwin MD) Irritable bowel syndrome with diarrhea Obesity Neck pain Hypothyroidism Chronic back pain Bronchial asthma Hyperlipidemia HTN (hypertension) Surgical History History of hydrocelectomy Hx of hernia repair Family History Father Heart disease Mother Heart disease Social History Alcohol intake: current Alcohol intake frequency: holidays/special occasions only Patient Tobacco Use Status: Never used Tobacco Physical Exam Vital Signs: Last Vital Signs Pulse 57 11/14/23 13:04 BP 124/82 11/14/23 13:04 Pulse Ox 97 11/14/23 13:04 Oxygen Delivery Method Room Air 11/14/23 13:04 BMI result Body Mass Index 33.2 Const General: cooperative and no acute distress Orientation/consciousness: patient oriented x3 Resp Effort & Inspection: normal respiratory effort and able to speak in complete sentences Neuro Other: Photophobic General: patient oriented x3 Cranial nerves: Yes CN's II-XII intact bilaterally Cognition (Neuro): normal cognition Psych Appearance: grossly normal Mental Status: mental status grossly normal Speech and movement: Normal speech and movement present Affect: normal affect Attitude: cooperative Assessment & Plan Assessment & Plan (1) Postconcussive syndrome: Comment: headache/migraines s/p head injury Jan 2016 and August 2016. Code(s): F07.81 - Postconcussional syndrome Category: Medical (2) Migraine without aura: Code(s): G43.009 - Migraine without aura, not intractable, without status migrainosus Category: Medical Plan Continue Emgality 120mg sc q month. Continue Propranolol ER 80mg qhs- continue to check BP & HR at home qd-bid, and notify me if HR < 55. Continue prn Sumatriptan and NSAID. Continue to rest 15-20 minutes after taking triptan to allow for best effect. Continue to avoid triggers. Future considerations: Nerivio. If migraines remain increased after pt has adjusted to fully retiring, pt to notify us to consider adjustment of his migraine prevention regimen. ? f/u in 6 months or sooner prn Medications: Refilled sumatriptan succinate 1/2 - 1 tab po prn at onset of migraine, may repeat in 2 hours (max 2 tabs per day, 4 tabs per week) (may take with Aleve) 30 days 15 tabs 6RF migraine headache Coding Level of Care Code Est Pt Level 4 (25555) Diagnoses Postconcussive syndrome F07.81 Migraine without aura G43.009
[2023-11-14 13:04] VITALS: BP 124/82; PULSE 57; O2SAT 97; BMI 33.2
== END 2023-11-14 14:01 | disposition home or self-care (01) ==
PROVIDERS: PCP Internal Medicine; Visit Provider Nurse Practitioner Family
DX: F07.81 Postconcussional syndrome (principal); G44.309 Post-traumatic headache, unspecified, not intractable
CPT/HCPCS: 99214

== ENCOUNTER → 2023-11-14 12:59 | Outpatient (BNVA) | payer OTHER, SELFPAY | PROVIDERS: PCP Internal Medicine; Visit Provider Nurse Practitioner Family | DX: F07.81 Postconcussional syndrome (principal); G43.009 Migraine without aura, not intractable, without status migrainosus | CPT/HCPCS: 99212 ==

== ENCOUNTER 2024-06-08 08:02 | Outpatient (AMB) | payer OTHER, SELFPAY ==
[2024-06-08 08:06] VITALS: BP 124/76; PULSE 59; O2SAT 96; BMI 36.2
--- NOTE | 2024-06-08 08:06 | A.OFFVIS_ITS ---
Vital Signs 06/08/24 08:06 Height 5 ft 9 in Weight 245 lb BMI 36.2 BP 124/76 Blood Pressure Location Lt brachial Position Sitting Pulse 59 Pulse Source Pulse Oximeter Pulse Oximetry (%) 96 Oxygen Delivery Method Room Air Intake Visit Reasons: WC 6 month F/U Review Trainer Required: No Accompanied by: Self / Same As Patient Allergies cat dander Allergy (Mild, Verified 06/08/24 08:10) Wheezing dog dander Allergy (Mild, Verified 06/08/24 08:10) Wheezing hayfever Allergy (Mild, Uncoded 11/14/23 13:09) Wheezing Medication List - Last Reconciled 06/08/24 by RAYMUNDO Ordonez adhesive bandage XL. Apply to injection site. albuterol sulfate mg inhalation Q6H albuterol sulfate 90 mcg/actuation 2 puffs inhalation Q4-6H PRN aspirin 81 mg PO DAILY benzonatate 200 mg PO TID PRN budesonide-formoterol 160-4.5 mcg/actuation (Symbicort) 2 puffs inhalation clonazepam 0.5 mg PO BID cyclobenzaprine 10 mg PO TID PRN dicyclomine 10 mg PO QID PRN fluticasone propionate 50 mcg/actuation 1 spray intranasal DAILY galcanezumab-gnlm (Emgality Pen) 120 mg subcut monthly; 30 days ibuprofen 800 mg PO TID PRN isopropyl alcohol 70% 1 ea topically monthly before Emgality injection; 30 days isopropyl alcohol 70% 3 ea topical .monthly 30 days levothyroxine 125 mcg PO QAM lisinopril-hydrochlorothiazide 20-12.5 mg 1 tab PO DAILY montelukast 10 mg PO DAILY pantoprazole 40 mg PO DAILY propranolol ER 80 mg PO DAILY 30 days simvastatin 40 mg PO QPM sumatriptan succinate 1/2 - 1 tab po prn at onset of migraine, may repeat in 2 hours (max 2 tabs per day, 4 tabs per week) (may take with Aleve) 30 days tadalafil 5 mg PO DAILY Do you need a note to return to daycare/school/sports/work: No HPI Comments Details: 64-yr-old male presents for f/u visit of postconcussive syndrome. Pt denies any significant interval medical changes. In the past month, he has had 5 migraine headache days. He had an increase in headaches- which he attributes to getting a new puppy who is waking him up a bit earlier than he normally would. He notes that when he does notice a migraine headache coming on, he is able to go into a dark space and rest. Now that he has been officially retired, he is better able to minimize his triggers- such as now able to wait a day or two to do housework when the weather is hotter or the barometric pressure is increased. He has gained weight since the last visit, he attributes this to eating a bit more during the holiday season. Walking more with the new puppy. Again trying to work on eating and drinking more healthier. He continues to be mindful to minimize his migraine triggers- avoiding being outside in weather that is too hot for too long. Can feel tired- feels likely d/t the Propranolol ER 80mg- but lower doses did not control the headaches as well. His heart rate has been typically in the high 50s. Compliant w/ Emgality, notices that it is wearing off Sumatriptan is still helpful. [facility] Medical History Irritable bowel syndrome with diarrhea Obesity Neck pain Hypothyroidism Chronic back pain Bronchial asthma Hyperlipidemia HTN (hypertension) Surgical History History of hydrocelectomy Hx of hernia repair Family History Father Heart disease Mother Heart disease Social History Alcohol intake: current Alcohol intake frequency: holidays/special occasions only Patient Tobacco Use Status: Never used Tobacco Physical Exam Vital Signs: Last Vital Signs Pulse 59 06/08/24 08:06 BP 124/76 06/08/24 08:06 Pulse Ox 96 06/08/24 08:06 Oxygen Delivery Method Room Air 06/08/24 08:06 BMI result Body Mass Index 36.2 Const General: cooperative and no acute distress Orientation/consciousness: patient oriented x3 Resp Effort & Inspection: normal respiratory effort and able to speak in complete sentences Neuro Other: Photophobic General: patient oriented x3 Cranial nerves: Yes CN's II-XII intact bilaterally Cognition (Neuro): normal cognition Psych Appearance: grossly normal Mental Status: mental status grossly normal Speech and movement: Normal speech and movement present Affect: normal affect Attitude: cooperative Assessment & Plan Assessment & Plan (1) Postconcussive syndrome: Comment: headache/migraines s/p head injury Jan 2016 and August 2016. Code(s): F07.81 - Postconcussional syndrome Category: Medical (2) Migraine without aura: Code(s): G43.009 - Migraine without aura, not intractable, without status migrainosus Category: Medical Plan Continue Emgality 120mg sc q month. Continue Propranolol ER 80mg qhs- continue to check BP & HR at home qd-bid as needed, and notify me if HR < 55. Continue prn Sumatriptan and NSAID. Continue to rest 15-20 minutes after taking triptan to allow for best effect. Continue to optimize lifestyle factors, such as taking adequate fluids, maintaining a healthy diet, engaging in regular social and physical activity. Continue to avoid triggers- such as prolonged light, heat exposures; prolonged rigorous physical activity. Future considerations: Nerivio. ? f/u in 6 months or sooner prn Coding Level of Care Code Est Pt Level 4 (07264) Diagnoses Postconcussive syndrome F07.81 Migraine without aura G43.009
== END 2024-06-08 09:16 | disposition home or self-care (01) ==
PROVIDERS: PCP Internal Medicine; Visit Provider Nurse Practitioner Family
DX: F07.81 Postconcussional syndrome (principal); G44.309 Post-traumatic headache, unspecified, not intractable
CPT/HCPCS: 99214

== ENCOUNTER → 2024-06-08 08:02 | Outpatient (BNVA) | payer OTHER, SELFPAY | PROVIDERS: PCP Internal Medicine; Visit Provider Nurse Practitioner Family | DX: F07.81 Postconcussional syndrome (principal); G43.009 Migraine without aura, not intractable, without status migrainosus | CPT/HCPCS: 99212 ==

== ENCOUNTER 2024-10-14 08:22 | Outpatient (AMB) | payer OTHER, SELFPAY ==
[2024-10-14 08:33] VITALS: BP 122/74; PULSE 68; O2SAT 95; BMI 36.2
--- NOTE | 2024-10-14 08:33 | A.OFFVIS_ITS ---
Vital Signs 10/14/24 08:33 Height 5 ft 9 in Weight 245 lb BMI 36.2 BP 122/74 Blood Pressure Location Lt brachial Position Sitting Pulse 68 Pulse Source Pulse Oximeter Pulse Oximetry (%) 95 Oxygen Delivery Method Room Air Intake Visit Reasons: WC 4 month F/U Intake Note: Patient presents 4 month follow up for migraines New Media Strategist Required: No Accompanied by: Self / Same As Patient Allergies cat dander Allergy (Mild, Verified 10/14/24 08:38) Wheezing dog dander Allergy (Mild, Verified 10/14/24 08:38) Wheezing hayfever Allergy (Mild, Uncoded 11/14/23 13:09) Wheezing HPI Comments Details: 64-yr-old male presents for f/u visit of postconcussive syndrome. Pt denies any significant interval medical changes. In the past month, his headaches have been a bit increased with the recent barometric pressure changes. He also notes that since the spring, he has been doing more physical activity such as yard work, and helping his partner clean out her business. He walking regularly with his puppy. Also walks on a home treadmill. Though he continues to pace his activities and minimize migraine headache triggers, which continues to be more manageable now that he is retired. Triggers continue to include excessive physical activity, sustained exertion especially in hotter weather, lytes, using a computer or TV for too long. States he may feel a bit tired, which he attributes to his Propranolol ER 80mg- but lower doses did not control the headaches as well. His heart rate has been typically in the high 50-60ss. Compliant w/ Emgality, notices that it is wearing off toward the end of the month- tries to take it around the 1st of the month. Sumatriptan is still effective. At onset of migraine, he will also relax in a quiet dark space. [facility] Medical History Irritable bowel syndrome with diarrhea Obesity Neck pain Hypothyroidism Chronic back pain Bronchial asthma Hyperlipidemia HTN (hypertension) Surgical History History of hydrocelectomy Hx of hernia repair Family History Father Heart disease Mother Heart disease Social History Alcohol intake: current Alcohol intake frequency: holidays/special occasions only Patient Tobacco Use Status: Never used Tobacco Physical Exam Vital Signs: Last Vital Signs Pulse 68 10/14/24 08:33 BP 122/74 10/14/24 08:33 Pulse Ox 95 10/14/24 08:33 Oxygen Delivery Method Room Air 10/14/24 08:33 BMI result Body Mass Index 36.2 Const General: cooperative and no acute distress Orientation/consciousness: patient oriented x3 Resp Effort & Inspection: normal respiratory effort and able to speak in complete sentences Neuro Other: Photophobic General: patient oriented x3 Cranial nerves: Yes CN's II-XII intact bilaterally Cognition (Neuro): normal cognition Psych Appearance: grossly normal Mental Status: mental status grossly normal Speech and movement: Normal speech and movement present Affect: normal affect Attitude: cooperative Assessment & Plan Assessment & Plan (1) Postconcussive syndrome: Comment: headache/migraines s/p head injury Jan 2016 and August 2016. Code(s): F07.81 - Postconcussional syndrome Category: Medical (2) Migraine without aura: Code(s): G43.009 - Migraine without aura, not intractable, without status migrainosus Category: Medical Plan Continue Emgality 120mg sc q month. Continue Propranolol ER 80mg qhs- continue to check BP & HR at home qd-bid as needed, and notify me if HR < 55. Continue prn Sumatriptan and NSAID. Continue to rest 15-20 minutes after taking triptan to allow for best effect. Continue to optimize lifestyle factors, such as taking adequate fluids, maintaining a healthy diet, engaging in regular social and paced physical activity. Continue to avoid triggers- such as prolonged light, heat exposures; prolonged rigorous physical activity. Future considerations: Nerivio or eTNS neuromodulation device therapy. ? f/u in 6 months or sooner prn Coding Level of Care Code Est Pt Level 4 (30323) Diagnoses Postconcussive syndrome F07.81 Migraine without aura G43.009
--- OUTSIDE RECORDS SUMMARY | 2024-10-14 08:33 | XMS_ITS | Clinical Summary ---
Author Organization [facility] Address [address] [address] Phone Care Team Providers Care Motor Transport Inspector Name Role Phone Pcp, Unknown Primary Care Provider Unavailabl e Allergies No known active allergies Medications Medication Sig Dispensed Refills Start Date End Date Status propranoloL (INDERAL LA) 120 mg 24 hr capsule Take 120 mg by mouth daily. Active aspirin 81 MG EC tablet Take 81 mg by mouth daily. Active levothyroxine (SYNTHROID, LEVOTHROID) 125 MCG tablet Take 125 mcg by mouth every morning. Active oxyCODONE-acetaminop hen (PERCOCET) 10-325 mg per tablet Take 1 tablet by mouth every 4 (four) hours as needed for pain (specific location in comments). Partial fill ok Active clonazePAM (KLONOPIN) 0.5 MG tablet Take 0.5 mg by mouth 3 (three) times a day as needed for anxiety. Active galcanezumab-gnlm (EMGALITY PEN SUBQ) Inject under the skin. Active lisinopril-hydroCHLO ROthiazide (PRINZIDE,ZESTORETIC ) 10-12.5 mg per tablet Take 1 tablet by mouth daily. Active albuterol 90 mcg/actuation inhaler Inhale 2 puffs into the lungs every 6 (six) hours as needed for wheezing. Active pantoprazole (PROTONIX) 40 MG tablet Take 40 mg by mouth daily. Active simvastatin (ZOCOR) 20 MG tablet Take 20 mg by mouth nightly at bedtime. Active carisoprodol (SOMA) 350 MG tablet Take 350 mg by mouth 4 (four) times a day as needed for spasm. Active SUMATRIPTAN SUCCINATE ORAL Take by mouth. Active budesonide-formotero l (SYMBICORT) 160-4.5 mcg/actuation inhaler Inhale 2 puffs into the lungs 2 (two) times a day. Active traMADoL (ULTRAM) 50 mg tablet Take 1 tablet (50 mg total) by mouth every 6 (six) hours as needed for pain (specific location in comments). 20 tablet 03/14/2022 Active Active Problems No known active problems Social History Tobacco Use Types Packs/Day Years Used Date Smoking Tobacco: Never Smokeless Tobacco: Never Alcohol Use Standard Drinks/Week Comments Not Currently 0 (1 standard drink = 0.6 oz pur e alcohol) Education Answer Date Recorded Are you interested in more education? Not on kurt e 10/06/2022 Are you concerned about learning? Not on file 10/06/2022 No 10/06/2022 No 10/06/2022 Digital Access Answer Date Recorded No 11/04/2022 No 11/04/2022 No 11/04/2022 Reliable internet access at home? Not on file 11/04/2022 Device with a working camera? Not on file Sex and Gender Information Value Date Recorded Sex Assigned at Not on file Gender Identity Not on file Sexual Orientation Not on file Last Filed Vital Signs Vital Sign Reading Time Taken Comments Blood Pressure 148/83 03/14/2022 5:15 PM EDT Pulse 70 03/14/2022 5:15 PM EDT Temperature 37.2 ??C (99 ??F) 03/14/2022 5:00 PM EDT Respiratory Rate 15 03/14/2022 5:15 PM EDT Oxygen Saturation 94% 03/14/2022 5:15 PM EDT Inhaled Oxygen Concentration - - Weight 108.9 kg (240 lb) 03/14/2022 11:50 AM EDT Height 175.3 cm (5' 9 ) 03/14/2022 11:50 AM EDT Body Mass Index 35.44 03/14/2022 11:50 AM EDT Plan of Treatment Health Maintenance Due Date Last Done Comments Adult Td,Tdap Booster 1960 CREATININE LEVEL 1960 LIPID PANEL 1960 POTASSIUM LEVEL 1960 TSH LEVEL 1960 DEPRESSION SCREENING 1972 HEPATITIS B SCREENING 1978 HEPATITIS C SCREENING 1978 HIV ONE-TIME SCREENING (18-65 YEARS) 1978 SCREENING FOR DIABETES 1995 COLOGUARD 2005 COLONOSCOPY 2005 COLORECTAL CANCER SCREENING 2005 FIT TEST 2005 FOBT 2005 SIGMOIDOSCOPY 2005 VIRTUAL COLONOSCOPY 2005 PNEUMOCOCCAL VACCINES (50+ years) (1 of 1 - PCV) 2010 ZOSTER VACCINES (1 of 2) 2010 INFLUENZA VACCINE (#1) 2024 , 02/24/2020, 03/16/2018, Additional history exists COVID-19 VACCINE ( season) 2024 03/31/2021, 09/10/2020, 08/20/2020 RSV VACCINE (1 - 1-dose 75+ series) 2035 SMOKING STATUS SCREENING (Once After 26 Yrs) Completed 03/14/2022 HEPATITIS A VACCINES Aged Out No long er eligible based on patient's age to complete this topic HEPATITIS B VACCINES Aged Out No long er eligible based on patient's age to complete this topic HIB VACCINES Aged Out No longer eligi ble based on patient's age to complete this topic MENINGOCOCCAL VACCINES (ACWY) Aged Out No longer eligible based on patient's age to complete this topic Medical Devices Implanted Type Area Maintenance Machine Repairer Device Identifier Shelf Expiration Date Model / Serial / Lot Mesh Mesh Care Teams Motor Transport Inspector Relationship Specialty Start Date End Date Pcp, Unknown PCP - General 12/20/21 Additional Source Comments The information contained in this document represents components of the legal health record. It is not the complete legal health record.[facility]
--- OUTSIDE RECORDS SUMMARY | 2024-10-14 08:33 | XMS_ITS | Clinical Summary ---
Author Organization [facility] Address [address] [place] [address] Care Team Providers Care [employer] Program Coordinator Name Role Phone Unavailable Primary Care Provider Unavailabl e Allergies Active Allergy Reactions Criticality Noted Date Comments Environmental 10/18/2016 Dogs, cats, horses, animals with dander Medications Montelukast Sodium 10 MG Tab TAKE 1 TABLET IN THE EVENING ONCE A DAY 2 7 Active Levothyroxine Sodium 125 MCG Tab None Entered 6 Active Simvastatin (ZOCOR) 40 MG Tab 1 TABLET AT BEDTIME Active LISINOPRIL-HCTZ 20-12.5 MG Tab TAKE 1 TABLET EVERY DAY 1 7 Active Albuterol Sulfate (PROAIR RESPICLICK) 108 (90 BASE) MCG/ACT AEROSOL POWDER, BREATH ACTIVATED INHALE 2 PUFFS EVERY 6 HOURS NEEDED 6 6 Active Aspirin 81 MG Tablet Delayed Response TAKE 1 TABLET EVERY DAY 2 7 Active Beclomethasone Dipropionate (QVAR) 40 MCG/ACT Aero Soln None Entered 6 Active Betamethasone Dipropionate 0.05 % Ointment APPLY EXTERNALLY DIRECTED 3 7 Active ClonazePAM 0.5 MG Tab TAKE 1 TABLET TWICE A DAY NEEDED *TOO SOON UNTIL 10/01* 0 7 Active Clotrimazole-Beta methasone 1-0.05 % Cream APPLY TO AFFECTED AREA TWICE A DAY 1 7 Active Ibuprofen 600 MG Tab TAKE 1 TABLET BY MOUTH EVERY 6 HOURS NEEDED FOR MILD PAIN 0 7 Active Ondansetron 4 MG TABLET DISPERSIBLE TAKE 1 TABLET BY MOUTH EVERY 6 HOURS NEEDED NAUSEA 0 7 Active Oxycodone-Acetami nophen 10-325 MG Tab TAKE 1 TABLET EVERY 6 HOURS NEEDED FOR PAIN 0 7 Active Pantoprazole Sodium 40 MG Tablet Delayed Response 1 tablet daily 6 Active Tadalafil (CIALIS) 5 MG Tab TAKE 1 TABLET BY MOUTH EVERY DAY 11 7 Active Riboflavin 100 MG Cap 1 CAPSULE twice DAILY with meals 60 Cap 1 7 Active Riboflavin 100 MG Cap 1 CAPSULE twice DAILY 60 Cap 2 7 Active Social History Tobacco Use Types Packs/Day Years Used Date Smoking Tobacco: Never Sex and Gender Information Value Date Recorded Sex Assigned at Not on file Legal Sex Male 10:08 AM EDT Gender Identity Not on file Sexual Orientation Not on file Last Filed Vital Signs Vital Sign Reading Time Taken Comments Blood Pressure 124/60 02/06/2017 10:39 AM EDT Pulse 68 02/06/2017 10:39 AM EDT Temperature - - Respiratory Rate - - Oxygen Saturation - - Inhaled Oxygen Concentration - - Weight 111 kg (244 lb) 10/18/2016 1:32 PM EDT Height - - Body Mass Index - - Plan of Treatment Health Maintenance Due Date Last Done Comments Hepatitis C Screening 1960 DTaP/Tdap/Td (1 - Tdap) 1978 Pneumococcal 50+ years (1 of 1 - PCV) 2010 Zoster (Shingrix) (1 of 2) 2010 COVID-19 Vaccine ( - 2023-2 5 season) 2024 Influenza (Season Ended) 2025 RSV (1 - 1-dose 75+ series) 2035 HPV Vaccine Aged Out No longer eligi ble based on patient's age to complete this topic Hep A Aged Out No longer eligi ble based on patient's age to complete this topic Hep B Aged Out No longer eligi ble based on patient's age to complete this topic Hib Aged Out No longer eligi ble based on patient's age to complete this topic Meningococcal ACWY Aged Out No longer eligible based on patient's age to complete this topic Zoster (Zostavax) Discontinued Insurance WORKERS COMPENSATION
--- OUTSIDE RECORDS SUMMARY | 2024-10-14 08:33 | XMS_ITS | Encounter Summary ---
Author Organization [facility] Address [address] [facility] [address] [place] [id number] Phone Care Team Providers Care Ammonium Nitrate Crystallizer Name Role Phone Pcp, Unknown Primary Care Provider Unavailabl e Encounter Details Date Type Department Care Team (Late st Contact Info) Description 03/14/2022 Procedure Pass OR Admitting Dept - Virtual Department [address] [place] [id number] Social History Tobacco Use Types Packs/Day Years Used Date Smoking Tobacco: Never Smokeless Tobacco: Never Alcohol Use Standard Drinks/Week Comments Not Currently 0 (1 standard drink = 0.6 oz pur e alcohol) Sex and Gender Information Value Date Recorded Sex Assigned at Not on file Gender Identity Not on file Sexual Orientation Not on file documented as of this encounter Plan of Treatment Not on file documented as of this encounter Visit Diagnoses Not on filedocumented in this encounter Care Teams Ammonium Nitrate Crystallizer Relationship Specialty Start Date End Date Pcp, Unknown PCP - General 12/20/21 documented as of this encounter Additional Source Comments The information contained in this document represents components of the legal health record. It is not the complete legal health record.[facility]
--- OUTSIDE RECORDS SUMMARY | 2024-10-14 08:33 | XMS_ITS | Clinical Summary ---
Author Organization [facility] Address [address] [place] [address] Care Team Providers Care Emissions Engineer Name Role Phone Unavailable Primary Care Provider Unavailabl e Social History Tobacco Use Types Packs/Day Years Used Date Smoking Tobacco: Never Assessed Sex and Gender Information Value Date Recorded Sex Assigned at Not on file Legal Sex Male 5:52 AM EST Gender Identity Not on file Sexual Orientation Not on file Plan of Treatment Health Maintenance Due Date Last Done Comments DTaP,Tdap,and Td Vaccines (1 - Tdap) 1979 Pneumococcal Vaccine: 50+ Ye ars (1 of 1 - PCV) 2010 Zoster Vaccines (1 of 2) 2010 COVID-19 Vaccine ( - 2023-2 5 season) 2024 Influenza Vaccine (Season Ended) 2025 RSV Immunization Adult Patie nts (1 - 1-dose 75+ series) 2035 HIB Vaccines Aged Out No longer eligi ble based on patient's age to complete this topic HPV Vaccines Aged Out No longer eligi ble based on patient's age to complete this topic Hepatitis A Vaccines Aged Out No long er eligible based on patient's age to complete this topic Hepatitis B Vaccines Aged Out No long er eligible based on patient's age to complete this topic IPV Vaccines Aged Out No longer eligi ble based on patient's age to complete this topic MMR Vaccines Aged Out No longer eligi ble based on patient's age to complete this topic Meningococcal ACWY Vaccine Aged Out N o longer eligible based on patient's age to complete this topic Meningococcal B Vaccine Aged Out No l onger eligible based on patient's age to complete this topic Pneumococcal Vaccine: Pediat rics (0 to 5 Years) and At-Risk Patients (6 to 64 Years) Aged Out No longer eligible b ased on patient's age to complete this topic RSV Immunization Patients Un kishor 20 months Aged Out No longer eligible b ased on patient's age to complete this topic Varicella Vaccines Aged Out No longer eligible based on patient's age to complete this topic
== END 2024-10-14 09:27 | disposition home or self-care (01) ==
LOC: HO.HSMS 08:23
PROVIDERS: PCP Internal Medicine; Visit Provider Nurse Practitioner Family
DX: F07.81 Postconcussional syndrome (principal); G44.309 Post-traumatic headache, unspecified, not intractable
CPT/HCPCS: 99214

== ENCOUNTER → 2024-10-14 08:22 | Outpatient (BNVA) | payer OTHER, SELFPAY | PROVIDERS: PCP Internal Medicine; Visit Provider Nurse Practitioner Family | DX: G43.009 Migraine without aura, not intractable, without status migrainosus (principal); F07.81 Postconcussional syndrome; Z79.899 Other long term (current) drug therapy | CPT/HCPCS: 99212 ==

== ENCOUNTER 2025-03-15 13:27 | Outpatient (AMB) | payer OTHER, SELFPAY ==
--- NOTE | 2025-03-15 13:34 | A.OFFVIS_ITS ---
Vital Signs 03/15/25 13:35 Height 5 ft 9 in Weight 256 lb BMI 37.8 BP 106/70 Blood Pressure Location Lt brachial Position Sitting Respiration 16 Pulse 77 Pulse Source Pulse Oximeter Pulse Oximetry (%) 96 Oxygen Delivery Method Room Air Intake Visit Reasons: Cervical Pain F/U (JEANA:08/19/23) Poultry Buyer Required: No Allergies cat dander Allergy (Mild, Verified 03/15/25 13:36) Wheezing dog dander Allergy (Mild, Verified 03/15/25 13:36) Wheezing hayfever Allergy (Mild, Uncoded 03/15/25 13:36) Wheezing Medication List - Last Reconciled 03/15/25 by Kenyetta Riley LPN adhesive bandage XL. Apply to injection site. albuterol sulfate mg inhalation Q6H albuterol sulfate 90 mcg/actuation 2 puffs inhalation Q4-6H PRN aspirin 81 mg PO DAILY benzonatate 200 mg PO TID PRN budesonide-formoterol 160-4.5 mcg/actuation (Symbicort) 2 puffs inhalation clonazepam 0.5 mg PO BID cyclobenzaprine 10 mg PO TID PRN dicyclomine 10 mg PO QID PRN fluticasone propionate 50 mcg/actuation 1 spray intranasal DAILY galcanezumab-gnlm (Emgality Pen) 120 mg subcut monthly; 30 days ibuprofen 800 mg PO TID PRN levothyroxine 125 mcg PO QAM lisinopril-hydrochlorothiazide 20-12.5 mg 1 tab PO DAILY montelukast 10 mg PO DAILY pantoprazole 40 mg PO DAILY propranolol ER 80 mg PO DAILY 30 days semaglutide (weight loss) (Wegovy) 0.25 mg subcut QWEEK simvastatin 40 mg PO QPM sumatriptan succinate 1/2 - 1 tab po prn at onset of migraine, may repeat in 2 hours (max 2 tabs per day, 4 tabs per week) (may take with Aleve) 30 days tadalafil 5 mg PO DAILY HPI HPI Cervical Pain F/U (JEANA:08/19/23): Details: History of Present Illness The patient is a 64-year-old male presenting with follow-up on neck pain. The neck pain was previously treated with cervical facet intraarticular steroid injections at the right C4, C5, and C6 levels, which provided 90% relief for approximately five months. The pain has since returned and intensified, affecting the neck, back, and arms, with associated weakness and discomfort when sitting or lying down for extended periods. The patient reports a history of arthritis, initially identified through imaging that revealed a mass near the spine, later confirmed as arthritis. This condition has contributed to widespread pain, including back pain and discomfort in the hands, and has been exacerbated by prolonged sitting or lying down. Additionally, the patient has experienced rotator cuff tendinitis, which was addressed with an injection that provided minimal relief. The tendinitis was associated with a tear, and the patient has noted numbness in the arms, potentially related to both the neck and shoulder conditions. Pain Description - Onset: Pain initially treated with injections in June 2023, relief lasted for five months. - Quality: Pain is described as discomfort and weakness, with numbness in the arms. - Location: Neck, back, arms, and shoulder. - Radiation: Pain radiates from the neck to the back and arms. - Exacerbating factors: Sitting or lying down for extended periods. - Relieving factors: Initial relief from steroid injections. Physical Exam - Appears afebrile. - Alert and oriented. - Mood and affect appropriate. - Follows and participates in conversation appropriately. - Respiratory effort is unlabored. - Cervical ROM limited. Limited flexion/extension. Results Pain Management - Affect: Pain impacts daily activities, causing discomfort and weakness. - Analgesia: Previous steroid injections provided 90% relief for five months. - Activities of Daily Living: Pain interferes with sitting and lying down for long periods. [facility] Medical History Irritable bowel syndrome with diarrhea Obesity Neck pain Hypothyroidism Chronic back pain Bronchial asthma Hyperlipidemia HTN (hypertension) Surgical History History of hydrocelectomy Hx of hernia repair Family History Father Heart disease Mother Heart disease Social History Alcohol intake: current Alcohol intake frequency: holidays/special occasions only Patient Tobacco Use Status: Never used Tobacco Physical Exam Vital Signs: Last Vital Signs Pulse 77 03/15/25 13:35 Resp 16 03/15/25 13:35 BP 106/70 03/15/25 13:35 Pulse Ox 96 03/15/25 13:35 Oxygen Delivery Method Room Air 03/15/25 13:35 BMI result Body Mass Index 37.8 Assessment & Plan Assessment & Plan (1) Cervical spondylosis: Code(s): M47.812 - Spondylosis without myelopathy or radiculopathy, cervical region Category: Medical (2) Cervical radiculopathy: Code(s): M54.12 - Radiculopathy, cervical region Category: Medical (3) Lumbar spondylosis: Code(s): M47.816 - Spondylosis without myelopathy or radiculopathy, lumbar region Category: Medical (4) Right rotator cuff tear: Code(s): M75.101 - Unspecified rotator cuff tear or rupture of right shoulder, not specified as traumatic Category: Medical Plan Plan Patient was informed and verbally consented to the use of an ambient scribe for clinic note documentation during this visit. 1. Cervical Facet Joint Pain - Plan to initiate physical therapy to address neck pain and improve mobility. - Consideration for MRI after completion of physical therapy to assess current status of cervical spine. 2. Lumbar Facet Arthritis - Continue monitoring symptoms and consider imaging if symptoms persist or worsen. 3. Rotator Cuff Tendinitis - Evaluate the effectiveness of previous shoulder injection and consider further interventions if necessary. Discussion Notes During the visit, we discussed the patient's ongoing neck pain and the previous success of steroid injections, which provided significant relief for five months. We agreed to initiate physical therapy as a first step to manage the pain and improve mobility, with the potential for an MRI if symptoms persist after therapy. The patient was informed about the importance of regular physical therapy exercises and the role they play in managing arthritis and preventing further deterioration. Patient Instructions - Begin physical therapy sessions as soon as possible to address neck pain. - Perform prescribed exercises regularly at home to maintain mobility and manage pain. - Follow up with the clinic after four to six weeks of physical therapy to evaluate progress and discuss further imaging if necessary. Orders: Orders PT Evaluation and Treatment 03/15/25 M47.812 - Spondylosis without myelopathy or radiculopathy, cervical region, M54.12 - Radiculopathy, cervical region Coding Level of Care Code Est Pt Level 4 (70100) Diagnoses Cervical spondylosis M47.812 Cervical radiculopathy M54.12 Lumbar spondylosis M47.816 Right rotator cuff tear M75.101
[2025-03-15 13:35] VITALS: BP 106/70; PULSE 77; RESP 16; O2SAT 96; BMI 37.8
--- OUTSIDE RECORDS SUMMARY | 2025-03-15 15:51 | XMS_ITS | Clinical Summary ---
Author Organization [address] [facility] Address [address] [place] [address] Phone Care Team Providers Care Senior Data Developer Name Role Phone Eze Núñez MD Primary Care Provider [phone] Allergies No known active allergies Medications ibuprofen (ADVIL,MOTRIN) 600 mg tablet Take 1 tablet (600 mg total) by mouth every 6 (six) hours if needed. 7 Active SUMATRIPTAN SUCCINATE ORAL Take by mouth. Active albuterol HFA (PROAIR HFA ; PROVENTIL HFA ; VENTOLIN HFA) 90 mcg/actuation inhaler TAKE 2 PUFFS BY MOUTH EVERY 4 TO 6 HOURS NEEDED Active aspirin 81 mg EC tablet Take 1 tablet (81 mg total) by mouth daily. Active budesonide-form oteroL (SYMBICORT) 160-4.5 mcg/actuation inhaler Inhale 2 puffs by mouth 2 (two) times a day. Active clonazePAM (KlonoPIN) 0.5 mg tablet Take 1 tablet (0.5 mg total) by mouth 2 (two) times a day. Max Daily Amount: 1 mg Active cyclobenzaprine (FLEXERIL) 10 mg tablet Take 1 tablet (10 mg total) by mouth. 4 Active fluticasone propionate (FLONASE) 50 mcg/actuation nasal spray Administer 2 sprays into each nostril 1 (one) time each day. 4 Active levothyroxine (SYNTHROID, LEVOTHROID) 125 mcg tablet Take 1 tablet (125 mcg total) by mouth 1 (one) time each day. Active lisinopril-hydr oCHLOROthiazide (PRINZIDE,ZESTO RETIC) 20-12.5 mg per tablet Take 1 tablet by mouth 1 (one) time each day. Active oxyCODONE-aceta minophen (PERCOCET) 10-325 mg per tablet TAKE 2 TABLETS BY MOUTH TWICE A DAY NEEDED FOR PAIN Active pantoprazole (PROTONIX) 40 mg EC tablet Take 1 tablet (40 mg total) by mouth 1 (one) time each day. Active propranolol LA (INDERAL LA) 120 mg 24 hr capsule Take 1 capsule (120 mg total) by mouth daily. Active simvastatin (ZOCOR) 40 mg tablet Take 1 tablet (40 mg total) by mouth at bedtime. Active tadalafiL (CIALIS) 5 mg tablet Take 1 tablet (5 mg total) by mouth 1 (one) time each day. Active Encounters Date Type Department Care Team Description 12/31/2024 9:15 AM EDT Office Visit Pulmonology [address] [phone] Heath Graves MD Pulmonary emphysema, unspecified emphysema type (CMS/HCC V24, CMS/HCC V28) (Primary Dx); Morbid obesity due to excess calories (CMS/HCC V24, CMS/HCC V28); Gastroesophageal reflux disease without esophagitis from Last 3 Months Social History Tobacco Use Types Packs/Day Years Used Date Smoking Tobacco: Never Assessed Sex and Gender Information Value Date Recorded Sex Assigned at Not on file Legal Sex Male 5:52 AM EST Gender Identity Not on file Sexual Orientation Not on file Last Filed Vital Signs Vital Sign Reading Time Taken Comments Blood Pressure 123/69 12/31/2024 9:19 AM EDT Pulse 52 12/31/2024 9:19 AM EDT Temperature 36 C (96.8 F) 12/31/2024 9:19 AM EDT Respiratory Rate - - Oxygen Saturation 99% 12/31/2024 9:19 AM EDT Inhaled Oxygen Concentration - - Weight 114 kg (251 lb) 12/31/2024 9:19 AM EDT Height - - Body Mass Index - - Plan of Treatment Upcoming Encounters Date Type Department Care Team (Late st Contact Info) Description 03/31/2025 9:45 AM EDT Office Visit Pulmonology [address] [phone] Heath Graves MD [address] [place] [address] Health Maintenance Due Date Last Done Comments Colorectal Cancer Screening: Colonoscopy 1960 DTaP,Tdap,and Td Vaccines (1 - Tdap) 1979 Pneumococcal Vaccine: 50+ Ye ars (1 of 2 - PCV) 1979 Zoster Vaccines (1 of 2) 2010 RSV Immunization Adult Patie nts (1 - Risk 60-74 years 1-dose series) 2020 Depression Screening 06/10/2024 Cholesterol Screening (Lipid Panel) 10/23/2024 HIV Screening 10/23/2024 Hepatitis C Screening 10/23/2024 Social Influencers of Health Screening 10/23/2024 COVID-19 Vaccine (1 - 2023-2 5 season) 2025 Influenza Vaccine (#1) 2025 HIB Vaccines Aged Out No longer eligi [...] on patient's [id number] [facility] Care Teams Senior Data Developer Relationship Specialty Start Date End Date Eze Núñez MD [address] [place] [phone] PCP - General Internal Medicine 12/31/24
--- OUTSIDE RECORDS SUMMARY | 2025-03-15 15:51 | XMS_ITS | Clinical Summary ---
Author Organization [facility] Address [address] [place] [address] Care Team Providers Care Postal Mail Carrier Name Role Phone Unavailable Primary Care Provider [...] COVID-19 Vaccine ( - 2023-2 5 season) 2025 Influenza (#1) 2025 RSV (1 - 1-dose 75+ series) 2035 HPV Vaccine (No Doses Required) Completed Hep A Aged Out No longer eligi [...]
--- OUTSIDE RECORDS SUMMARY | 2025-03-15 15:52 | XMS_ITS | Clinical Summary ---
Author Organization [facility] Address [address] [phone] Phone Care Team Providers Care Assistant Oceanographer Name Role Phone Pcp, Unknown Primary Care Provider Unavailabl e Allergies No known active allergies Medications propranoloL (INDERAL LA) 120 mg 24 hr capsule Take 120 mg by mouth daily. Active aspirin 81 MG EC tablet Take 81 mg by mouth daily. Active levothyroxine (SYNTHROID, LEVOTHROID) 125 MCG tablet Take 125 mcg by mouth every morning. Active oxyCODONE-aceta minophen (PERCOCET) 10-325 mg per tablet Take 1 tablet by mouth every 4 (four) hours as needed for pain (specific location in comments). Partial fill ok Active clonazePAM (KLONOPIN) 0.5 MG tablet Take 0.5 mg by mouth 3 (three) times a day as needed for anxiety. Active galcanezumab-gn lm (EMGALITY PEN SUBQ) Inject under the skin. Active lisinopril-hydr oCHLOROthiazide (PRINZIDE,ZESTO RETIC) 10-12.5 mg per tablet Take 1 tablet [...] SUMATRIPTAN SUCCINATE ORAL Take by mouth. Active budesonide-form oterol (SYMBICORT) 160-4.5 mcg/actuation inhaler Inhale 2 puffs [...] at Not on file Legal Sex Male 2:06 PM EDT Gender Identity Not on file Sexual Orientation Not on file Last Filed Vital Signs Vital Sign Reading Time Taken Comments Blood Pressure 148/83 03/14/2022 5:15 PM EDT Pulse 70 03/14/2022 5:15 PM EDT Temperature 37.2 C (99 F) 03/14/2022 5:00 PM EDT Respiratory Rate 15 [...] TSH LEVEL 1960 DEPRESSION SCREENING 1972 HEPATITIS C SCREENING 1978 HIV ONE-TIME SCREENING (18-65 YEARS) 1978 SCREENING FOR DIABETES 1995 COLOGUARD 2005 COLONOSCOPY 2005 COLORECTAL CANCER SCREENING 2005 FIT TEST 2005 FOBT 2005 SIGMOIDOSCOPY 2005 VIRTUAL COLONOSCOPY 2005 PNEUMOCOCCAL VACCINES (50+ years) (1 of 1 - PCV) 2010 ZOSTER VACCINES (1 of 2) 2010 INFLUENZA VACCINE (#1) 2025 , 02/24/2020, 03/16/2018, Additional history exists COVID-19 VACCINE ( - 2024- season) 2025 03/31/2021, 09/10/2020, 08/20/2020 RSV VACCINE (1 - [...] age to complete this topic MENINGOCOCCAL VACCINES (B) Aged Out N o longer eligible based on patient's age to complete this topic Medical Devices Implanted Type Area Lead Php Developer Device Identifier Shelf Expiration Date Model / Serial / Lot Mesh Mesh Insurance [facility] [place] [facility] [address] [place] [address] Care Teams Assistant Oceanographer Relationship Specialty Start Date End Date Pcp, Unknown PCP - General 12/20/21 Additional Source Comments The information contained in this document represents components of the legal health record. It is not the complete legal health record.[facility]
--- OUTSIDE RECORDS SUMMARY | 2025-03-15 15:52 | XMS_ITS | Encounter Summary ---
Author Organization [facility] Address [address] [facility] [address] [place] [phone] Phone Care Team Providers Care Car Mover Name Role Phone Pcp, Unknown Primary Care Provider Unavailabl e Encounter Details Date Type Department Care Team (Late st Contact Info) Description 03/14/2022 Procedure Pass OR Admitting Dept - Virtual Department [address] [place] [phone] Social History Tobacco Use Types Packs/Day Years [...] on file documented as of this encounter Functional Status * Calculated C-SSRS Risk Score (Lifetime/Recent) Answer Date of Assessment Author No Risk Indicated 03/14/2022 12:00 PM EDT Jayshree Kam nd, RN * [place] Suicide Severity Rating Scale (Screener/Recent Self-Report) Question Answer Date of Assessment Author 2. Non-Specific Active Suicidal Thoughts (Past 1 Month) No 03/14/2022 12:00 PM EDT Susy Byers RN documented as of this encounter Plan of Treatment Not on file documented as of this encounter Visit Diagnoses Not on filedocumented in this encounter Care Teams Car Mover Relationship Specialty Start Date End Date Pcp, Unknown PCP - General 12/20/21 documented as of this encounter Additional Source Comments The information contained in this document represents components of the legal health record. It is not the complete legal health record.[facility]
== END 2025-03-15 13:56 | disposition home or self-care (01) ==
LOC: HO.PMC 13:28
PROVIDERS: PCP Internal Medicine; Referring Provider Internal Medicine; Visit Provider Internal Medicine
DX: M47.812 Spondylosis without myelopathy or radiculopathy, cervical region (principal); M54.12 Radiculopathy, cervical region; M47.816 Spondylosis without myelopathy or radiculopathy, lumbar region; M75.101 Unspecified rotator cuff tear or rupture of right shoulder, not specified as traumatic
CPT/HCPCS: 99213

== ENCOUNTER 2025-04-16 08:34 | Outpatient (AMB) | payer OTHER, SELFPAY ==
[2025-04-16 08:35] VITALS: BP 120/70; PULSE 80; O2SAT 98; BMI 39.7
--- NOTE | 2025-04-16 08:35 | MHC.OFFVIS ---
Vital Signs 04/16/25 08:35 Height 5 ft 9 in Weight 269 lb BMI 39.7 BP 120/70 Blood Pressure Location Rt brachial Position Sitting Pulse 80 Pulse Source Pulse Oximeter Pulse Oximetry (%) 98 Oxygen Delivery Method Room Air Intake Visit Reasons: WC-6m follow up-LVM [place] Alarm Inspector Required: No Accompanied by: Self / Same As Patient Allergies cat dander Allergy (Mild, Verified 04/16/25 08:39) Wheezing dog dander Allergy (Mild, Verified 04/16/25 08:39) Wheezing hayfever Allergy (Mild, Uncoded 04/16/25 08:39) Wheezing Medication List - Last Reconciled 04/16/25 by RAYMUNDO Ordonez adhesive bandage XL. Apply to injection site. albuterol sulfate mg inhalation Q6H albuterol sulfate 90 mcg/actuation 2 puffs inhalation Q4-6H PRN aspirin 81 mg PO DAILY benzonatate 200 mg PO TID PRN budesonide-formoterol 160-4.5 mcg/actuation (Symbicort) 2 puffs inhalation clonazepam 0.5 mg PO BID cyclobenzaprine 10 mg PO TID PRN dicyclomine 10 mg PO QID PRN fluticasone propionate 50 mcg/actuation 1 spray intranasal DAILY galcanezumab-gnlm (Emgality Pen) 120 mg subcut monthly; 30 days ibuprofen 800 mg PO TID PRN levothyroxine 125 mcg PO QAM lisinopril-hydrochlorothiazide 20-12.5 mg 1 tab PO DAILY montelukast 10 mg PO DAILY pantoprazole 40 mg PO DAILY propranolol ER 80 mg PO DAILY 30 days simvastatin 40 mg PO QPM sumatriptan succinate 1/2 - 1 tab po prn at onset of migraine, may repeat in 2 hours (max 2 tabs per day, 4 tabs per week) (may take with Aleve) 30 days tadalafil 5 mg PO DAILY HPI Comments Details: 64-yr-old male presents for f/u visit of postconcussive syndrome. Pt denies any significant interval medical changes. Pt reports he recently started wegovy to optimize his weight loss efforts, however he is holding this now due to it caused GI reflux. Therefore, he is trying to work with a new claim examiner program to help him lose weight through diet. He reports that his migraine attacks are stable, but has been noticing a bit more irritability during the migraine. He walking regularly with his puppy. He continues to pace his activities and minimize migraine headache triggers, which continues to be more manageable now that he is retired. Triggers continue to include excessive physical activity, sustained exertion especially in hotter weather, lights, using a computer or TV for too long. States he may feel a bit tired, which he attributes to his Propranolol ER 80mg- but lower doses did not control the headaches as well. His heart rate has been typically in the high 50-60ss. Compliant w/ Emgality, notices that it is wearing off toward the end of the month- tries to take it around the 1st of the month. Sumatriptan is still effective. At onset of migraine, he will also relax in a quiet dark space. [facility] Medical History Irritable bowel syndrome with diarrhea Obesity Neck pain Hypothyroidism Chronic back pain Bronchial asthma Hyperlipidemia HTN (hypertension) Surgical History History of hydrocelectomy Hx of hernia repair Family History Father Heart disease Mother Heart disease Social History Alcohol intake: current Alcohol intake frequency: holidays/special occasions only Patient Tobacco Use Status: Never used Tobacco Physical Exam Vital Signs: Last Vital Signs Pulse 80 04/16/25 08:35 BP 120/70 04/16/25 08:35 Pulse Ox 98 04/16/25 08:35 Oxygen Delivery Method Room Air 04/16/25 08:35 BMI result Body Mass Index 39.7 Const General: cooperative and no acute distress Orientation/consciousness: patient oriented x3 Resp Effort & Inspection: normal respiratory effort and able to speak in complete sentences Neuro Other: Photophobic General: patient oriented x3 Cranial nerves: Yes CN's II-XII intact bilaterally Cognition (Neuro): normal cognition Gait exam (Neuro): Normal gait present Psych Appearance: grossly normal Mental Status: mental status grossly normal Speech and movement: Normal speech and movement present Affect: normal affect Attitude: cooperative Assessment & Plan Assessment & Plan (1) Postconcussive syndrome: Comment: headache/migraines s/p head injury Jan 2016 and August 2016. Code(s): F07.81 - Postconcussional syndrome Category: Medical (2) Migraine without aura: Code(s): G43.009 - Migraine without aura, not intractable, without status migrainosus Category: Medical Qualifiers: Intractability: not intractable Status migrainosus presence: without status migrainosus Qualified Code(s): G43.009 - Migraine without aura, not intractable, without status migrainosus Plan Continue Emgality 120mg sc q month. Continue Propranolol ER 80mg qhs- continue to check BP & HR at home qd-bid as needed, and notify me if HR < 55. Continue prn Sumatriptan and NSAID. Continue to rest 15-20 minutes after taking triptan to allow for best effect. Continue to optimize lifestyle factors, such as taking adequate fluids, maintaining a healthy diet, engaging in regular social and paced physical activity. Continue to avoid triggers- such as prolonged light, heat exposures; prolonged rigorous physical activity. Future considerations: topiramate or qulipta trials as these could promote weight loss, Nerivio or eTNS neuromodulation device therapy. ? f/u in 6 months or sooner prn Coding Level of Care Code Est Pt Level 4 (73982) Diagnoses Postconcussive syndrome F07.81 Migraine without aura and without status migrainosus, not intractable G43.009 Intractability: not intractable Status migrainosus presence: without status migrainosus
--- OUTSIDE RECORDS SUMMARY | 2025-04-16 09:06 | XMS_ITS | Clinical Summary ---
Author Organization [facility] Address [address] [address] Phone Care Team Providers Care Cafeteria Aide Name Role Phone Pcp, Unknown Primary Care [...] 1978 HIV ONE-TIME SCREENING (18-65 YEARS) 1978 COLOGUARD 2005 COLONOSCOPY 2005 COLORECTAL CANCER SCREENING [...] this topic Medical Devices Implanted Type Area Shear Grinder Operator Helper Device Identifier Shelf Expiration Date Model / Serial / Lot Mesh Mesh [facility] [place] [address] [place] [address] [address] [place] [place] [address] [place] [address]O [facility] [place] [facility] Care Teams Cafeteria Aide Relationship Specialty Start Date End Date Pcp, Unknown PCP - General 12/20/21 Additional Source Comments The information contained in this document represents components of the legal health record. It is not the complete legal health record.[facility]
--- OUTSIDE RECORDS SUMMARY | 2025-04-16 09:06 | XMS_ITS | Encounter Summary ---
Author Organization [facility] Address [address] [facility] [address] [place] [phone] Phone Care Team Providers Care Character Artist Name Role Phone Pcp, Unknown Primary Care Provider Unavailabl e Encounter Details Date Type Department Care Team (Late st Contact Info) Description 03/14/2022 Procedure Pass OR Admitting Dept - Virtual Department [address] [place] [phone] Social History Tobacco Use Types Packs/Day Years [...] PM EDT Jayshree Kam nd, RN * [place] Suicide Severity Rating Scale (Screener/Recent Self-Report) Question Answer Date of Assessment Author 2. Non-Specific Active Suicidal Thoughts (Past 1 Month) No 03/14/2022 12:00 PM EDT Susy Byers RN documented as of this encounter Plan of Treatment Not on file documented as of this encounter Visit Diagnoses Not on filedocumented in this encounter Care Teams Character Artist Relationship Specialty Start Date End Date Pcp, Unknown PCP - General 12/20/21 documented as of this encounter Additional Source Comments The information contained in this document represents components of the legal health record. It is not the complete legal health record.[facility]
--- OUTSIDE RECORDS SUMMARY | 2025-04-16 09:06 | XMS_ITS | Continuity of Care Document ---
Author Organization [facility] Address [address] [place] [address] Insurance Providers Payer Plan Claims Address Claims Phone Policy Number Group Number Relation Employer Guarantor Name Guarantor Guarantor Address Guarantor Phone [facility] [address], [place] [address] [id number] Self Rudi [place] 1960 [place] [id number] [employer] [address], [place] [address] [id number] Self [place] 1960 [place] [id number] [employer] [address], [facility] [place] [address] [id number] Self Rudi [place] 1960 [place] [id number] Problems Condition ICD9 code ICD10 code SNOMED code Start Date End Date S tatus Encounter for screening for other metabolic disorders Z13.228 Results No Results Allergies, adverse reactions, alerts No known allergies and adverse reactions Medications No administered medications reported Vital Signs No vital signs reported Social History No smoking Hx information available
--- OUTSIDE RECORDS SUMMARY | 2025-04-16 09:06 | XMS_ITS | Clinical Summary ---
Author Organization [address] [facility] Address [address] [place] [address] Phone Care Team Providers Care Oyster Worker Name Role Phone Eze Núñez MD Primary Care Provider [phone] Allergies No known active allergies Medications ibuprofen [...] mouth 1 (one) time each day. Active Social History Tobacco Use Types Packs/Day [...] Care Team (Late st Contact Info) Description 06/21/2025 8:30 AM EST Ancillary Procedure Pulmonology - [address] [phone] 06/21/2025 9:15 AM EST Office Visit Pulmonology [address] [phone] Heath Graves MD [address] [place] [phone] Health Maintenance Due Date Last Done Comments Colorectal Cancer Screening: Colonoscopy 1960 DTaP,Tdap,and Td Vaccines (1 - Tdap) 1979 Pneumococcal Vaccine: 50+ Ye ars (1 of 2 - PCV) 1979 RSV Immunization Adult Patie nts (1 - Risk 50-74 years 1-dose series) 2010 Zoster Vaccines (1 of 2) 2010 Depression Screening 06/10/2024 Cholesterol Screening (Lipid Panel) [...] patient's age to complete this topic Insurance [facility] Care Teams Oyster Worker Relationship Specialty Start Date End Date Eze Núñez MD [address] [place] [address] [phone] PCP - General Internal Medicine 12/31/24
--- OUTSIDE RECORDS SUMMARY | 2025-04-16 09:06 | XMS_ITS | Clinical Summary ---
Author Organization [facility] Address [address] [place] [address] Care Team Providers Care Medical Affairs Specialist Name Role Phone Unavailable Primary Care Provider [...] of 2) 2010 COVID-19 Vaccine ( - 2024-2 6 season) 2025 Influenza (#1) 2025 RSV (1 [...]
== END 2025-04-16 09:29 | disposition home or self-care (01) ==
LOC: HO.HSMS 08:34
PROVIDERS: PCP Internal Medicine; Visit Provider Nurse Practitioner Family
DX: F07.81 Postconcussional syndrome (principal); G43.009 Migraine without aura, not intractable, without status migrainosus
CPT/HCPCS: 99214

== ENCOUNTER → 2025-04-16 08:34 | Outpatient (BNVA) | payer OTHER, SELFPAY | PROVIDERS: PCP Internal Medicine; Visit Provider Nurse Practitioner Family | DX: G43.009 Migraine without aura, not intractable, without status migrainosus (principal); F07.81 Postconcussional syndrome | CPT/HCPCS: 99212 ==